=== PATIENT | male | born 1985 | race Caucasian/White ===

== ENCOUNTER → 2017-06-10 | Outpatient (CLI) | payer OTHER | END | disposition home or self-care (01) | LOC: C.LAB 21:07 | DX: Z02.83 Encounter for blood-alcohol and blood-drug test (principal) ==

== ENCOUNTER 2017-06-18 08:15 | Emergency (ER) | payer OTHER ==
[~2017-06-18] VITALS: Ht 180.3 cm; Wt 88.0 kg
[2017-06-18 08:16] VITALS: TEMP 36.7; Ht 180.3 cm; Wt 88.0 kg
--- NOTE | 2017-06-18 08:37 | EMERGENCY ROOM VISIT NOTE ---
ED Visit Note First contact with patient: 08:25 CHIEF COMPLAINT: Left third finger laceration 1 hour ago HISTORY OF PRESENT ILLNESS: Patient is a aparv-wehy-mbimhdwa 31-year-old white male who presents emergency department for evaluation of a laceration to the left third finger that he sustained at work roughly 1 hour ago. He got the left third finger pinched in an iron cell door, causing a laceration to the palmar aspect of the finger described below. He was seen by medical staff at the present who cleaned and wrapped the wound and referred him here for sutures. He notes mild bleeding, and notes a mild, throbbing pain. He is unsure of his last tetanus. Denies weakness or numbness of the finger. REVIEW OF SYSTEMS: Review of systems as per HPI. All other systems reviewed were negative. At least 6 systems reviewed. PMH: Electronic medical records are reviewed and summarized as above/below. See Problem List. SOCIAL HISTORY: Patient lives at home with his family. Non-smoker. 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 PHYSICAL EXAM: Vital Signs: Reviewed Nurse's notes. There is a 1.5 cm long laceration on the palmar aspect of the left third finger over the DIP crease. The edges gape apart with traction. There is no foreign material in the wound and it looks clean. There is no bleeding. No deep structures such as tendons or nerves are seen in the base of the wound. Extension and flexion of the finger is full and strong. EMERGENCY DEPARTMENT COURSE: X-rays of the left third finger were obtained and negative for acute fracture or bony injury. Tetanus was updated. Using sterile technique, saline and Betadine cleansing, and 1% lidocaine anesthesia, the laceration was repaired with 4,5-0 nylon sutures. Bacitracin and a light dressing were applied. Patient tolerated the procedure well. He was cleared to return to work without restrictions today. Differential diagnoses included laceration, fracture, dislocation, tendinous injury, among others. Medication reconciliation: I attest that I have personally reviewed the patient' s current medication list. Blood pressure screening: Patient was found to have a slightly elevated blood pressure due to circumstances. I do not believe that the patient requires hypertension monitoring. LEFT THIRD FINGER 3 VIEWS CLINICAL HISTORY: Laceration. FINDINGS: 3 views of the left third finger are obtained. No prior studies are available for comparison at the time of dictation. The skeletal structures are well mineralized. No fracture is seen. The third metacarpophalangeal and interphalangeal joints appear maintained. No radiodense foreign body is identified. IMPRESSION: There is no radiographic evidence of left third finger fracture. Problem List Medical Problems: (1) Hypertension Status: Chronic Current/Historical Medications No Active Prescriptions or Reported Meds Allergies Coded Allergies: No Known Allergies (Unverified , 06/18/17) Vital Signs Date Time Temp Pulse Resp B/P (MAP) Pulse Ox O2 Delivery O2 Flow Rate FiO2 06/18/17 08:16 36.7 70 18 164/99 98 Room Air Medications Administered Medications (Trade) Dose Ordered Sig/Zoë Route Start Time Stop Time Status Last Admin Dose Admin Diphtheria/ Pertussis/Tetanus Vacc (Adacel Inj) 0.5 ml ONCE ONCE IM. 06/18/17 08:45 06/18/17 08:46 DC 06/18/17 10:10 0.5 ML Departure Information Impression Primary Impression: Finger laceration Additional Impression: Work related injury Prescriptions No Active Prescriptions or Reported Meds Referrals No Doctor, Assigned (PCP) Patient Instructions Pending Sale To [facility] Additional Instructions Keep wound clean and dry. Do not allow any crusting or dried blood to accumulate on sutures. Clean gently with mild soap and water. Use an antibiotic ointment for 3-4 days, then let wound dry. Suture removal in 12-14 days. Return sooner for any signs of infection (increasing redness, swelling, drainage). Ice and elevate for swelling and pain. Ibuprofen 600 mg and Tylenol 1000 mg every 6 hrs for pain. Problem Qualifiers Primary Impression: Finger laceration Encounter type: initial encounter Finger: middle finger Damage to nail status: without damage Foreign body presence: without foreign body Laterality: left Qualified Codes: S61.213A - Laceration without foreign body of left middle finger without damage to nail, initial encounter
[2017-06-18] MEDS ORDERED: XYLOCAINE 1%/SOD BICARB 20 ML VIAL INFIL ONE (08:45)
[2017-06-18] MEDS ORDERED: DIPHTHERIA/TETANUS/PERTUSSIS 0.5 ML SYR/VIAL IM. ONE (08:45)
--- NOTE | 2017-06-18 09:10 | DIAGNOSTIC IMAGING REPORT ---
LEFT THIRD FINGER 3 VIEWS CLINICAL HISTORY: Laceration. FINDINGS: 3 views of the left third finger are obtained. No prior studies are available for comparison at the time of dictation. The skeletal structures are well mineralized. No fracture is seen. The third metacarpophalangeal and interphalangeal joints appear maintained. No radiodense foreign body is identified. IMPRESSION: There is no radiographic evidence of left third finger fracture. Electronically signed by: George Teague M.D. 06/18/2017 9:08 AM Dictated Date/Time: 06/18/2017 9:05 AM
[2017-06-18 10:19] VITALS: BP 132/77; PULSE 77; O2SAT 98
== END 2017-06-18 10:21 | disposition home or self-care (01) ==
LOC: C.EDB 08:16 → C.EDA 10:21
DX: S61.213A Laceration without foreign body of left middle finger without damage to nail, initial encounter (principal); W23.0XXA Caught, crushed, jammed, or pinched between moving objects, initial encounter; Y92.149 Unspecified place in prison as the place of occurrence of the external cause; Y99.0 Civilian activity done for income or pay; Z23 Encounter for immunization; I10 Essential (primary) hypertension

== ENCOUNTER 2023-10-21 21:45 | Inpatient (IN) ==
--- OUTSIDE RECORDS SUMMARY | 2023-10-21 21:51 | External Medical Summary ---
Author Name Unknown Address Unknown Organization K01:[facility] [place] [address] [place] [address] Laboratory Report Ordering Provider Test Date Status SERENA CURTIS 06/12/2023 09:21:28 Final Observation Date Value Abnormality Reference (Units ) Status BUN 06/12/2023 09:21:28 17 6-20 (mg/dL) Final Creatinine 06/12/2023 09:21:28 1.0 0.6-1.2 (mg/dL) Final Glomerular filtration rate/1.73 sq M.predicted [Volume Rate/Area] in Serum, Plasma or Blood by Creatinine-based formula (CKD-EPI) 06/12/2023 09:21:28 >90 >=60 (mL/min) Final eGFR is calculated based on the CKD-EPI 2020 equation SODIUM 06/12/2023 09:21:28 137 135-146 (m mol/L) Final Potassium 06/12/2023 09:21:28 4.7 3.5-5.1 (m mol/L) Final Cl 06/12/2023 09:21:28 99 98-107 (mm ol/L) Final CO2 06/12/2023 09:21:28 26 22-32 (mmo l/L) Final Anion gap 06/12/2023 09:21:28 12 7-15 (mmol /L) Final Glucose 06/12/2023 09:21:28 131 Above high normal 70 -120 (mg/dL) Final Albumin 06/12/2023 09:21:28 4.6 3.8-5.0 (g /dL) Final AST (Aspartate aminotransferase) 06/12/2023 09:21:28 21 10-50 (U/L) Fin al Alk Phos 06/12/2023 09:21:28 103 35-130 (U/ L) Final Bilirubin, Total 06/12/2023 09:21:28 0.2 <=1 .2 (mg/dL) Final Calcium 06/12/2023 09:21:28 9.8 8.4-10.2 ( mg/dL) Final Protein 06/12/2023 09:21:28 7.1 6.0-8.3 (g /dL) Final ALT (Alanine aminotransferase) 06/12/2023 09:21:28 62 Above high normal 10-50 (U/L) Final Performing Location [facility] [place] - [address] [facility] [id number]
--- OUTSIDE RECORDS SUMMARY | 2023-10-21 21:51 | External Medical Summary | Summary of Care ---
Author Name Unknown Organization [facility] Address [address] [place] [address] Phone [phone] Care Team Providers Care Dormitory Supervisor Name Role Phone Natalie Terry MD Primary Care Provi sharon Reason for Visit * Reason Onset Date Comments Health Maintenance 10/02/2023 Encounter Details Date Type Department Care Team ([facility] st Contact Info) Description 10/02/2023 Telephone [facility] [address] [place] [address] Que Bowers, [address] [place] [address] Health Maintenance Allergies No known active allergiesdocumented as of this encounter (statuses as of 10/18/2023) Medications Medication Sig Dispensed Refills Start Date End Date Status Omeprazole 20 MG Oral Capsule Delayed Release (PriLOSEC)Indication s:Gastroesophageal reflux disease without esophagitis TAKE 1 CAPSULE BY MOUTH EVERY DAY 1 HOUR BEFORE THE FIRST MEAL OF THE DAY 90 Capsule 03/29/2023 Active Citalopram Hydrobromide 20 MG Oral Tablet (CeleXA) TAKE 1 TABLET BY MOUTH EVERY DAY IN THE MORNING 90 Tablet 04/20/2023 Active Losartan Potassium 50 MG Oral Tablet (Cozaar)Indications: Essential hypertension with goal blood pressure less than 140/90 TAKE 1 TABLET BY MOUTH EVERY DAY IN THE MORNING 90 Tablet 09/06/2023 Active Naltrexone 380 MG Intramuscular Suspension Reconstituted (Vivitrol) Inject 380 mg into a large muscle Every 28 days for 12 doses. 1 Each 11 09/12/2022 10/10/2023 documented as of this encounter (statuses as of 10/18/2023) Active Problems Problem Noted Date Diagnosed Date Alcohol dependence, binge pattern 11/22/2022 Prediabetes 10/03/2021 Overview: Per Prediabetes protocol Mixed hyperlipidemia 09/12/2021 Impaired fasting glucose 09/12/2021 Essential hypertension with goal blood pressure less than 140/90 02/04/2020 Gastroesophageal reflux disease without esophagi tis 02/04/2020 documented as of this encounter (statuses as of 10/18/2023) Immunizations Name Administration Dates Next Due DTP Vaccine 01/29/1997, 9,12/23/1986, 985,1984,1984 Hepatitis B, 0-19 yrs 09/21/2000,01/29/1997 MMR - Measles/Mumps/Rubella Vaccine 01/29/1997,0 05/14/1986 OPV - Polio Virus Vaccine (Oral) 989,12/23/1986,1984, 985 Season Influenza, Quad, PF, Adjuvanted, 65+ Yrs, IM (FLUAD) 01/21/2020 TB Halima Test 05/17/2001,01/29/1997,08/06/1989 documented as of this encounter Social History Tobacco Use Types Packs/Day Years Used Date Smoking Tobacco: Never Smokeless Tobacco: Current Snuff Alcohol Use Standard Drinks/Week Comments Not Currently 0 (1 standard drink = 0.6 oz pur e alcohol) Denies 09/11/23 PHQ-2 Answer Date Recorded PHQ Adult Total Score 16 08/30/2022 Hunger Vital Sign Answer Date Recorded Within the past 12 months, y ou worried that your food would run out before you got the money to buy more. Never true 08/30/19 23 Within the past 12 months, t he food you bought just didn't last and you didn't have money to get more. Never true 08/29/2022 Utilities Answer Date Recorded Do you have trouble paying y our heating, water, or electric bill? (Adult - for ages 18 years and over) Not on file 09/11/2023 Is your family able to pay t he heat, water, or electric bill? (Household - for ages 0-17 years) Not on file 09/11/2023 Does your family have access to good internet? (Household - for ages 0-17 years) Not on file 09/11/2023 Social Connections Answer Date Recorded How often do you feel lonely or isolated from those around you? (Adult - for ages 18 years and over) Not on file 09/11/2023 Sex and Gender Information Value Date Recorded Sex Assigned at Male 03/10/2020 9:57 AM EST Gender Identity Male 03/10/2020 9:57 AM EST Sexual Orientation Straight 03/10/2020 9: 57 AM EST Job Start Date Occupation Industry Not on file Not on file Not on file documented as of this encounter Miscellaneous Notes * Addendum Note - Liza Walters LPN - 10/18/2023 2:23 PM EDTAddended by: LIZA WALTERS on: 10/18/2023 02:23 PM Modules accepted: Orders * Telephone Encounter - Liza Walters LPN - 10/18/2023 2:22 PM EDT Spoke to pt. Routine labs and routine appt scheduled. * Telephone Encounter - Liza Walters LPN - 10/02/2023 8:45 AM EDT Care Gaps Comprehensive Care Outreach Last Office/Telemedicine Visit: 01/04/2023 (in office), Visit date not found (telemedicine) Next Office Visit: Visit date not found Hemoglobin AIC Results: Lab Results Component Value Date/Time HEMOGLOBIN A1C - [facility] 5.8 (H) 09/29/2022 08:16 AM HEMOGLOBIN A1C - [facility] 5.8 (H) 09/05/2021 07:30 AM HEMOGLOBIN A1C - [facility] 5.5 02/04/2020 03:23 PM BP Readings from Last 1 Encounters: 09/11/23 144/95 Reviewed Health Maintenance below: HbA1c 09/30/2023 Care Gap Outreach Action Taken: Left message and MyChart message sent documented in this encounter Plan of Treatment Upcoming Encounters Date Type Department Care Team ([facility] st Contact Info) Description 11/12/2023 7:30 AM EDT Laboratory Laboratory Patient Service [address] [phone] [facility] [address] [address] 11/19/2023 8:00 AM EDT Office Visit [address] [phone] Natalie Terry MD [address] [place] [phone] Scheduled Orders Name Type Priority Associated Diagnoses Orde r Schedule LIPID PANEL WITH DIRECT LDL IF TG IS HIGH Lab Routine Mixed hyperlipidemia Expected: 10/18/2023, Expires: 10/17/2024 COMPREHENSIVE METABOLIC PANEL Lab Routine Essential hypertension with goal blood pressure less than 140/90 Expected: 10/18/2023, Expires: 10/17/2024 HEMOGLOBIN A1C Lab Routine Prediabetes Expected: 10/18/2023, Expires: 10/17/2024 Health Maintenance Due Date Last Done Comments Pneumococcal Vaccine: Pediatrics (0 to 5 Years) and At-Risk Patients (6 to 64 Years) (1 of 2 - PCV) 1990 DTaP,Tdap,and Td Vaccines (7 - Tdap) 01/29/2007 01/29/1997, 03/01/1989, 12/23/1986, Additional history exists COVID-19 Vaccine (1 - 2022- season) 2022 Depression Monitoring 08/31/2023 08/30/2022 HbA1c 09/30/2023 09/29/2022, 08/24, 02/04/2020 Influenza Vaccine (FLU shot) (#1) 2023 01/21/2020, 01/06/2012, 12/24/2010, Additional history exists GFR 06/11/2024 06/12/2023, 0709/2022, 09/05/2021, Additional history exists Albumin/Creatinine Ratio 09/05/2024 09/05/2021 MENINGOCOCCAL (MENACTRA/MENVEO) Aged Out 09/14/2004 No longer eligible based on patient's age to complete this topic Hepatitis B Vaccine Completed 05/26/2005, 10/15/2004, 09/14/2004, Additional history exists HPV (Gardasil) Vaccine Aged Out No lo nger eligible based on patient's age to complete this topic documented as of this encounter Medical Devices Not on filedocumented as of this encounter Visit Diagnoses Diagnosis Essential hypertension with goal blood pressure less than 140/90- Primary Mixed hyperlipidemia Prediabetes Other abnormal glucose Screening for lipid disorders documented in this encounter Care Teams Dormitory Supervisor Relationship Specialty Start Date End Date Natalie Terry MD [address] [place] [phone] PCP - General Family Medicine 10/18/23 documented as of this encounter
--- OUTSIDE RECORDS SUMMARY | 2023-10-21 21:51 | External Medical Summary | Summary of Care ---
Author Name Unknown Organization [facility] Address [address] [place] [address] Phone [phone] Care Team Providers Care Community Sports Coordinator Name Role Phone Que Aguirre DO Primary Care Provid er Reason for Visit * Reason Comments eRx-Medication Refill Encounter Details Date Type Department Care Team ([facility] st Contact Info) Description 09/05/2023 Refill [facility] [address] [place] [phone] Que Aguirre DO [address] [place] [address] Essential hypertension with goal blood pressure less than 140/90 Allergies No known active allergiesdocumented as of this encounter (statuses as of 09/06/2023) Medications Medication Sig Dispensed Refills Start Date End Date Status Omeprazole 20 MG Oral Capsule Delayed Release (PriLOSEC)Indicati ons:Gastroesophage al reflux disease without esophagitis TAKE 1 CAPSULE BY MOUTH EVERY DAY 1 HOUR BEFORE THE FIRST MEAL OF THE DAY 90 Capsule 03/29/2023 Active Citalopram Hydrobromide 20 MG Oral Tablet (CeleXA) TAKE 1 TABLET BY MOUTH EVERY DAY IN THE MORNING 90 Tablet 04/20/2023 Active Losartan Potassium 50 MG Oral Tablet (Cozaar)Indication s:Essential hypertension with goal blood pressure less than 140/90 TAKE 1 TABLET BY MOUTH EVERY DAY IN THE MORNING 90 Tablet 1 09/06/2023 Active Losartan Potassium 50 MG Oral Tablet (Cozaar)Indication s:Essential hypertension with goal blood pressure less than 140/90 TAKE 1 TABLET BY MOUTH EVERY DAY IN THE MORNING 90 Tablet 2 11/24/2022 4 Discontinued documented as of this encounter (statuses as of 09/06/2023) Active Problems Problem Noted Date Diagnosed Date Alcohol dependence, binge pattern 11/22/2022 Prediabetes 10/03/2021 Overview: Per Prediabetes protocol Mixed hyperlipidemia 09/12/2021 Impaired fasting glucose 09/12/2021 Essential hypertension with goal blood pressure less than 140/90 02/04/2020 Gastroesophageal reflux disease without esophagi tis 02/04/2020 documented as of this encounter (statuses as of 09/06/2023) Immunizations Name Administration Dates Next Due Season Influenza, Quad, PF, Adjuvanted, 65+ Yrs, IM (FLUAD) 01/21/2020 documented as of this encounter Social History Tobacco Use Types Packs/Day Years Used Date Smoking Tobacco: Never Smokeless Tobacco: Current Snuff Alcohol Use Standard Drinks/Week Comments Not Currently 0 (1 standard drink = 0.6 oz pur e alcohol) Denies 07/13/23 PHQ-2 Answer Date Recorded PHQ Adult Total [...] money to get more. Never true 08/29/2022 Sex and Gender Information Value Date Recorded Sex Assigned at Male 03/10/2020 9:57 AM EST Gender Identity Male 03/10/2020 9:57 AM EST Sexual Orientation Straight 03/10/2020 9: 57 AM EST Job Start Date Occupation Industry Not on file Not on file Not on file documented as of this encounter Miscellaneous Notes * Telephone Encounter - Mary Paniagua [facility] [place] [facility] - 09/06/2023 7:27 AM EDTSigned Prescriptions: Disp Refills Losartan Potassium 50 MG Oral Tablet (Coza*90 Tab*1 Sig: TAKE 1 TABLET BY MOUTH EVERY DAY IN THE MORNINGAuthorizing Provider: QUE AGUIRRE User: MARY PANIAGUA documented in this encounter Plan of Treatment Health Maintenance Due Date Last Done Comments Pneumococcal Vaccine: Pediatrics (0 to 5 Years) and At-Risk Patients (6 to 64 Years) (1 of 2 - PCV) 1990 DTaP,Tdap,and Td Vaccines (7 - Tdap) 01/29/2007 01/29/1997, 03/01/1989, 12/23/1986, Additional history exists COVID-19 Vaccine ( season) 2022 Depression Monitoring 08/31/2023 08/30/2022 HbA1c 09/30/2023 09/29/2022, 08/24, 02/04/2020 Influenza Vaccine (FLU shot) (Season Ended) 2023 01/21/2020, 01/06/2012, 12/24/2010, Additional history exists GFR 06/11/2024 06/12/2023, 0709/2022, 09/05/2021, Additional history exists Albumin/Creatinine Ratio 09/05/2024 09/05/2021 MENINGOCOCCAL (MENACTRA/MENVEO) Aged Out 09/14/2004 No longer eligible based on patient's age to complete this topic Hepatitis B Completed 05/26/2005, 09/24, 09/14/2004, Additional history exists GARDASIL-HPV IMMUNIZATION SERIES Aged Out No longer eligible based on patient's age to complete this topic documented as of this encounter Medical Devices Not on filedocumented as of this encounter Visit Diagnoses Diagnosis Essential hypertension with goal blood pressure less than 140/90 documented in this encounter Care Teams Community Sports Coordinator Relationship Specialty Start Date End Date Que Aguirre DO [address] [place] [id number] PCP - General Internal Medicine 07/30/20 documented as of this encounter
--- OUTSIDE RECORDS SUMMARY | 2023-10-21 21:51 | External Medical Summary ---
Author Name Unknown Address Unknown Organization : Laboratory Report Ordering Provider Test Date Status SERENA CURTIS 07/13/2023 10:03:42 Final Observation Date Value Abnormality Reference (Units ) Status Ethyl glucuronide [Mass/volume] in Urine 07/13/2023 10:03:42 NEGATIVE <500 (ng/mL) Final Ethyl sulfate [Mass/volume] in Urine 07/13/2023 10:03:42 NEGATIVE <100 (ng/mL) Final This drug testing is for med ical treatment only.
Analysis was performed as non-forensic testing and
these results should be used only by healthcare
providers to render diagnosis or treatment, or to
monitor progress of medical conditions.
For assistance with interpreting these drug results,
please contact a [facility] Toxicology
Specialist: [phone] ( ), M-F,
8am-6pm EST.
For additional information, please refer to
http://education.[facility]/faq/GYT349
(This link is being provided for informational/
educational purposes only.)
This test was developed and its analytical performance
characteristics have been determined by [facility]
[place], [place]. It has
not been cleared or approved by the U.S. Food and Drug
Administration. This assay has been validated pursuant
to the CLIA regulations and is used for clinical
purposes.

Test Performed at:
[email or web address]
[id number] [facility] [place] [address]
Chang Duncan M.D., Ph.D.,Director of Laboratories Performing Location
--- OUTSIDE RECORDS SUMMARY | 2023-10-21 21:51 | External Medical Summary | Summary of Care ---
Author Name Unknown Organization [facility] Address [address] [place] [address] Phone [phone] Care Team Providers Care Technical Services Manager Name Role Phone Que Bowers DO Primary Care Provid er Reason for Visit * Reason Onset Date Comments Health Maintenance 10/02/2023 Encounter Details Date Type Department Care Team ([facility] Contact Info) Description 10/02/[address] [facility] [address] [place] [phone] Que Bowers DO [address] [place] [address] Health Maintenance Allergies No known active allergiesdocumented as of this encounter (statuses as of 10/02/2023) Medications Medication Sig Dispensed Refills Start Date End Date Status Naltrexone 380 MG Intramuscular Suspension Reconstituted (Vivitrol) Inject 380 mg into a large muscle Every 28 days for 12 doses. 1 Each 09/12/2022 10/10/2023 Active Omeprazole 20 MG Oral Capsule Delayed Release (PriLOSEC)Indications :Gastroesophageal reflux disease without esophagitis TAKE 1 CAPSULE BY MOUTH EVERY DAY 1 HOUR BEFORE THE FIRST MEAL OF THE DAY 90 Capsule 1 03/29/2023 Active Citalopram Hydrobromide 20 MG Oral Tablet (CeleXA) TAKE 1 TABLET BY MOUTH EVERY DAY IN THE MORNING 90 Tablet 1 04/20/2023 Active Losartan Potassium 50 MG Oral Tablet (Cozaar)Indications:E ssential hypertension with goal blood pressure less than 140/90 TAKE 1 TABLET BY MOUTH EVERY DAY IN THE MORNING 90 Tablet 1 09/06/2023 Active documented as of this encounter (statuses as of 10/02/2023) Active Problems Problem Noted Date Diagnosed Date Alcohol dependence, binge pattern 11/22/2022 Prediabetes 10/03/2021 Overview: Per Prediabetes protocol Mixed hyperlipidemia 09/12/2021 Impaired fasting glucose 09/12/2021 Essential hypertension with goal blood pressure less than 140/90 02/04/2020 Gastroesophageal reflux disease without esophagi tis 02/04/2020 documented as of this encounter (statuses as of 10/02/2023) Immunizations Name Administration Dates Next Due Season [...] encounter Miscellaneous Notes * Telephone Encounter - Liza Fletcher LPN - 10/02/2023 8:45 AM EDT Care [...] 12/23/1986, Additional history exists COVID-19 Vaccine ( - season) 2022 Depression Monitoring 08/31/2023 08/30/2022 HbA1c 09/30/2023 09/29/2022, 08/24, 02/04/2020 Influenza Vaccine (FLU shot) (#1) 2023 01/21/2020, 01/06/2012, 12/24/2010, Additional history exists GFR 06/11/2024 06/12/2023, 07/0 09/2022, 09/05/2021, Additional history exists Albumin/Creatinine Ratio 09/05/2024 [...] Not on filedocumented as of this encounter Care Teams Technical Services Manager Relationship Specialty Start Date End Date Que Bowers DO [address] [place] [id number] PCP - General Internal Medicine 07/30/20 documented as of this encounter
--- OUTSIDE RECORDS SUMMARY | 2023-10-21 21:51 | External Medical Summary ---
Author Name Unknown Address Unknown Organization K01:[facility]AT[facility] [place] - [address] [facility] [id number] Laboratory Report Ordering Provider Test Date Status RAJIV DAY 05/17/2023 09:10:54 Final Cutoff Concentrations:
Drug Level
Amphetamines 500 ng/mL
Benzodiazepines 100 ng/mL
Cannabinoids 50 ng/mL
Cocaine Metabolite 150 ng/mL
Fentanyl 1 ng/mL
Hydrocodone / Hydromorphone 300 ng/mL
Methadone Metabolite 100 ng/mL
Morphine / Codeine 300 ng/mL
Oxycodone / Oxymorphone 100 ng/mL

Screening results are presumptive and can only be used for medical purposes. Confirmatory testing is available upon request. Observation Date Value Abnormality Reference (Units ) Status Amphetamines, Urine screen 05/17/2023 09:10:54 Negative Negative Final Benzodiazepines, Urine screen 05/17/2023 09:10:54 Negative Negative Final Cannabinoids, Urine screen 05/17/2023 09:10:54 Negative Negative Final Cocaine Metabolite, Urine screen 05/17/2023 09:10:54 Negative Negative Final fentaNYL [Presence] in Urine by Screen method 05/17/2023 09:10:54 Negative Negative Final HYDROcodone [Presence] in Urine by Screen method 05/17/2023 09:10:54 Negative Negative Final 4-Fawbroultf-3,5-Dimeth yl-3,3-Diphenylpyrrolid ine (EDDP) [Presence] in Urine 05/17/2023 09:10:54 Negative Negative Final Opiates, Urine screen 05/17/2023 09:10:54 Negative Negative Final oxyCODONE [Presence] in Urine by Screen method 05/17/2023 09:10:54 Negative Negative Final Performing Location LABORATORY C - [address] [facility] [id number]
--- OUTSIDE RECORDS SUMMARY | 2023-10-21 21:51 | External Medical Summary ---
Author Name Unknown Address Unknown Organization : Laboratory Report Ordering Provider Test Date Status SERENA CURTIS 09/11/2023 10:04:00 Final Observation Date Value Abnormality Reference (Units ) Status Ethyl glucuronide [Mass/volume] in Urine 09/11/2023 10:04:00 NEGATIVE <500 (ng/mL) Final Ethyl sulfate [Mass/volume] in Urine 09/11/2023 10:04:00 NEGATIVE <100 (ng/mL) Final This drug testing is for med ical treatment only.
Analysis was performed as non-forensic testing and
these results should be used only by healthcare
providers to render diagnosis or treatment, or to
monitor progress of medical conditions.
For assistance with interpreting these drug results,
please contact a [facility]
Specialist: [phone] ( [phone] M-F,
8am-6pm EST.
For additional information, please refer to
[email or web address]
(This link is being provided for informational/
educational purposes only.)
This test was developed and its analytical performance
characteristics have been determined by [employer]
[place], [place]. It has
not been cleared or approved by the U.S. Food and Drug
Administration. This assay has been validated pursuant
to the CLIA regulations and is used for clinical
purposes.

Test Performed at:
[facility]
[id number] [facility]
[place] [address]
Chang Duncan M.D., Ph.D.,Director of Laboratories Performing Location
[2023-10-21] MEDS ORDERED: STAT IV Infusion **Titration per Protocol STA (22:03)
[2023-10-21] MEDS ORDERED: PHARMACY GLYCEMIC MGMT CONSULT PRN (22:03)
[2023-10-21 22:16] LABS: Oxygen Saturation VBG 70.6 %; PCO2 VBG 25 mmHg (38-50); PO2 VBG 42 mmHg; pH VBG < 7.00 (7.36-7.41)
[2023-10-21] MEDS ORDERED: Patient's HEIGHT &/or WEIGHT Needed STA (22:17)
[2023-10-21] MEDS: SODIUM CHLORIDE 0.9% 1,000 ML IV SCH ×2 (22:22→22:23)
[2023-10-21 22:27] LABS: Hematocrit (blood only) 46.4 % (42.0-52.0); Hemoglobin 14.8 g/dl (14.0-18.0); Mean Corpuscular Hemoglobin 29.4 pg (25.0-34.0); Mean Corpuscular Hgb Conc 31.9 g/dL (32.0-36.0); Mean Corpuscular Volume 92.2 fL (80.0-100.0); Mean Platelet Volume 11.9 fL (9.4-12.4); Platelet Count 413 K/uL (130-400); RDW Coefficient of Variation 13.2 % (11.5-14.5); RDW Standard Deviation 44.6 fL (36.4-46.3); Red Blood Count 5.03 M/uL (4.70-6.10); White Blood Count 12.69 K/ul (4.8-10.8)
[2023-10-21 22:41] LABS: Calcium 8.9 mg/dl (8.6-10.3); Potassium 5.4 mmol/L (3.5-5.1)
[2023-10-21 22:42] LABS: Albumin Globulin Ratio 1.5 (0.9-2); Albumin Level 4.8 gm/dl (3.4-5.0); BUN Creatinine Ratio 23.7 (10-20); Bilirubin,Total 0.4 mg/dl (0.2-1.0); Creatinine Clr Calc Pharmacy 54.4 ml/min; Est GFR (African American) 49.1 ml/min; Est GFR (Non-African American) 42.4 ml/min; Globulin 3.2 gm/dl (2.5-4.0); Magnesium 2.4 mg/dl (1.7-2.4)
[2023-10-21] MEDS ORDERED: GLUCOSE 40% GEL 15 GM TUBE PO PRN (22:45)
[2023-10-21] MEDS ORDERED: DEXTROSE 50% 50 ML SYRINGE IV PRN (22:45)
[2023-10-21] MEDS ORDERED: CARBOHYDRATES FOR HYPOGLYCEMIA PO PRN (22:45)
[2023-10-21] MEDS ORDERED: GLUCOSE 10 TAB/TUBE PO PRN (22:45)
[2023-10-21] MEDS ORDERED: GLUCAGON FOR INJ 1 MG VIAL IM PRN (22:45)
--- NOTE | 2023-10-21 22:47 | Emergency Department Note ---
History of Present Illness General Chief complaint: Shortness of Breath/Dyspnea Stated complaint: SHORTNESS OF BREATH, BLACK VOMIT, NOT EATING Time Seen by Provider: 10/21/23 21:56 History of Present Illness Maximum Pain Intensity: 8 This is a 38-year-old male presenting to the emergency department for evaluation of abdominal pain, vomiting, and shortness of breath. The patient feels like he cannot catch his breath. He is very thirsty and has been drinking large quantities of fluids this week. Patient symptoms began mildly about a week ago but significantly worsened today. Patient did have an episode of emesis this morning, and felt better after this happened. He does not have history of chronic medical disease. He rates his overall discomfort an 8/10. Home Medications Medication Instructions Recorded Confirmed Type citalopram 20 mg tablet 20 mg PO ONCE PM 10/21/23 10/21/23 History losartan 50 mg tablet 50 mg PO DIRECTED 10/21/23 10/21/23 History omeprazole 20 mg capsule,delayed 20 mg PO DIRECTED 10/21/23 10/21/23 History release Allergies Allergy/AdvReac Type Severity Reaction Status Date / Time No Known Allergies Allergy Unverified 06/18/17 08:38 Past Med/Surg History Problem List (Updated 10/22/23 @ 01:33 by Louie Fletcher PA-C) Abdominal pain (Acute) Nausea and vomiting (Acute) Acidosis due to secondary diabetes (Acute) DKA (diabetic ketoacidosis) (Acute) Diabetes mellitus, new onset (Acute) Surgical History (Updated 10/21/23 @ 22:50 by Louie Fletcher PA-C) No significant past surgical history Social History Smoking Status: Never smoker Review of Systems A total of 10 systems reviewed and were otherwise negative Physical Exam Vital Signs Vital Signs - 24 hr 10/21/23 21:48 10/21/23 22:21 10/21/23 22:24 Temperature 35.6 C L Temperature Source Temporal Artery Scan Pulse Rate 135 H 120 H Pulse Rate [Apical] Pulse Rate from SpO2 Sensor Pulse Rhythm Pulse Rhythm [Apical] Pulse Strength [Apical] Respiratory Rate 22 35 H Respiratory Effort / Characteristics Non-Labored Spontaneous Respiratory Depth Normal Blood Pressure 122/89 127/89 Blood Pressure [Left Arm] Blood Pressure Mean 100 101 Blood Pressure Mean [Left Arm] Blood Pressure Position Sitting Pulse Oximetry 100 99 98 Oxygen Delivery Method Room Air Room Air Room Air Sepsis Recent Fever Within 48 Hours No Sepsis New/Unexplained Change in Mental Status N/A Sepsis Action Taken by Nursing Physician Notified 10/21/23 22:24 10/21/23 22:24 10/21/23 22:33 Temperature Temperature Source Pulse Rate 116 H 116 H Pulse Rate [Apical] 117 H Pulse Rate from SpO2 Sensor Pulse Rhythm Regular Pulse Rhythm [Apical] Regular Pulse Strength [Apical] Normal Respiratory Rate 33 H 34 H 36 H Respiratory Effort / Characteristics Non-Labored Spontaneous Respiratory Depth Deep Blood Pressure 146/89 H Blood Pressure [Left Arm] 127/89 Blood Pressure Mean 108 Blood Pressure Mean [Left Arm] 101 Blood Pressure Position Pulse Oximetry 99 Oxygen Delivery Method Room Air Sepsis Recent Fever Within 48 Hours Sepsis New/Unexplained Change in Mental Status Sepsis Action Taken by Nursing 10/21/23 22:38 10/21/23 22:48 10/21/23 23:03 Temperature Temperature Source Pulse Rate 113 H 109 H Pulse Rate [Apical] Pulse Rate from SpO2 Sensor 109 H Pulse Rhythm Pulse Rhythm [Apical] Pulse Strength [Apical] Respiratory Rate 30 H 35 H Respiratory Effort / Characteristics Respiratory Depth Blood Pressure 128/84 143/85 H Blood Pressure [Left Arm] Blood Pressure Mean 101 104 Blood Pressure Mean [Left Arm] Blood Pressure Position Pulse Oximetry 100 100 Oxygen Delivery Method Room Air Room Air Sepsis Recent Fever Within 48 Hours Sepsis New/Unexplained Change in Mental Status Sepsis Action Taken by Nursing 10/21/23 23:15 10/21/23 23:36 10/21/23 23:51 Temperature Temperature Source Pulse Rate 108 H 106 H 103 H Pulse Rate [Apical] Pulse Rate from SpO2 Sensor 108 H 106 H 104 H Pulse Rhythm Pulse Rhythm [Apical] Pulse Strength [Apical] Respiratory Rate 31 H 27 H 26 H Respiratory Effort / Characteristics Respiratory Depth Blood Pressure Blood Pressure [Left Arm] Blood Pressure Mean Blood Pressure Mean [Left Arm] Blood Pressure Position Pulse Oximetry 100 100 100 Oxygen Delivery Method Room Air Room Air Room Air Sepsis Recent Fever Within 48 Hours Sepsis New/Unexplained Change in Mental Status Sepsis Action Taken by Nursing VITALS: Vitals are noted on the nurse's note and reviewed by myself. Vital signs stable. GENERAL: White male who appears ill on arrival. He is tachypneic and speaking in short sentences HEAD: Normocephalic atraumatic. MOUTH: Mucous membranes dry. Lips are chapped. NECK: Supple without nuchal rigidity. No lymphadenopathy. No thyromegaly. Cervical spine is nontender. HEART: Tachycardic rate LUNGS: Clear to auscultation bilaterally without wheezes, rales or rhonchi. No retractions or accessory muscle use. ABDOMEN: Positive normal bowel sounds x 4. Soft, nontender, without masses or organomegaly. No guarding or rebound tenderness. MUSCULOSKELETAL: No muscle atrophy, erythema, or edema noted. Full range of motion in all extremities. NEURO: Patient was alert and oriented to person place and time. CN II through XII grossly intact. GCS 15 Course Administered Medications Insulin Human Regular 250 (units/ Sodium Chloride) 250 mls @ 10.8 mls/hr IV .Q23H9M MOOSE; Protocol Stop: 11/20/23 22:14 Last Titration: 10/22/23 00:43 Dose: 10.8 units/hr, 10.8 mls/hr Documented By: Co-signed By: GARY Admin: 10/21/23 22:53 Dose: 9 units/hr, 9 mls/hr Documented By: ALINE Co-signed By: [facility] Discontinued Medications Sodium Chloride (Nss) 1,000 mls @ 999 mls/hr IV .Q1H1M MOOSE Stop: 10/21/23 23:15 Last Infusion: 10/21/23 23:26 Dose: Infused Documented By: Admin: 10/21/23 22:22 Dose: 999 mls/hr Documented By: ALINE Sodium Chloride (Nss) 1,000 mls @ 999 mls/hr IV .Q1H1M MOOSE Stop: 10/22/23 00:04 Last Infusion: 10/22/23 01:14 Dose: Infused Documented By: Admin: 10/21/23 22:55 Dose: 999 mls/hr Documented By: Infusion: 10/21/23 22:55 Dose: Infused Documented By: Admin: 10/21/23 22:23 Dose: 999 mls/hr Documented By: ALINE Sodium Bicarbonate 100 meq/ (Sterile Water) 1,100 mls @ 500 mls/hr IV .Q2H12M STA Stop: 10/22/23 00:33 Last Infusion: 10/22/23 01:13 Dose: Infused Documented By: Admin: 10/21/23 22:51 Dose: 500 mls/hr Documented By: ALINE Thiamine HCl 100 mg/ Syringe 10 mls @ 2 mls/min IV NOW STA Stop: 10/21/23 23:54 Last Admin: 10/22/23 00:58 Dose: Not Given Documented By: Pantoprazole Sodium 80 mg/ (Dextrose) 120 mls @ 480 mls/hr IV ONE STA Stop: 10/22/23 00:29 Last Infusion: 10/22/23 01:12 Dose: Infused Documented By: Admin: 10/22/23 00:53 Dose: 480 mls/hr Documented By: Insulin Human Regular (Novolin-R Bolus From Bag) 9 units IV ONE ONE Stop: 10/21/23 23:01 Last Admin: 10/21/23 22:53 Dose: 9 units Documented By: LETHA Co-signed By: Critical Care Time I have personally spent greater than 79 minutes of critical care time in the direct management of this patient. This includes bedside care, interpretation of diagnostic studies, and testing, discussion with consultants, patient, and family members, and other required patient management activities. This 79 minutes is in excess of all separately billable procedures. Medical Decision Making Differential Diagnosis Differential diagnosis: Etiologies such as dka, sepsis, UTI, pneumonia, bacteremia, metabolic process, electrolyte abnormalities, cardiac sources, intracerebral event, intra-abdominal process, toxicological process, neurologic process, as well as others were entertained. Laboratory Data 10/21/23 22:10 10/21/23 23:53 Lab Results 10/21/23 10/21/23 10/21/23 Range/Units 22:01 22:02 22:10 WBC 12.69 H (4.8-10.8) K/ul RBC 5.03 (4.70-6.10) M/uL Hgb 14.8 (14.0-18.0) g/dl Hct 46.4 (42.0-52.0) % MCV 92.2 (80.0-100.0) fL MCH 29.4 (25.0-34.0) pg MCHC 31.9 L (32.0-36.0) g/dL RDW Std Deviation 44.6 (36.4-46.3) fL RDW Coeff of Elvia 13.2 (11.5-14.5) % Plt Count 413 H (130-400) K/uL MPV 11.9 (9.4-12.4) fL Immature Gran % (Auto) 0.9 % Neut % (Auto) 90.9 % Lymph % (Auto) 5.6 % Price % (Auto) 2.1 % Eos % (Auto) 0.1 % Baso % (Auto) 0.4 % Neut # (Auto) 11.54 H (1.40-6.50) K/uL Lymph # (Auto) 0.71 L (1.20-3.40) K/uL Price # (Auto) 0.27 (0.11-0.59) K/uL Eos # (Auto) 0.01 (0.00-0.50) K/uL Baso # (Auto) 0.05 (0.00-0.20) K/uL Immature Gran # (Auto) 0.11 (0.01-0.20) K/uL PT 10.2 (9.0-12.0) Seconds INR 0.9 (0.9-1.1) APTT 30 (21-31) Seconds PTT Ratio 1.1 VBG pH < 7.00 L (7.36-7.41) VBG pCO2 25 L (38-50) mmHg VBG pO2 42 mmHg VBG HCO3 TNP VBG O2 Saturation 70.6 % VBG Base Excess TNP Sodium 125 L (136-145) mmol/L Potassium 5.4 H (3.5-5.1) mmol/L Chloride 88 L (98-107) mmol/L Carbon Dioxide 6 L* (21-32) mmol/L Anion Gap 31 H (3-11) BUN 46 H (6-23) mg/dl Creatinine 1.94 H (0.6-1.4) mg/dl Est Cr Clr Drug Dosing 54.4 ml/min Est GFR ( Amer) 49.1 ml/min Est GFR (Non-Af Amer) 42.4 ml/min BUN/Creatinine Ratio 23.7 H (10-20) Glucose 845 H* (70-99(Fasting)) mg/dl POC Glucose > 600 H* > 600 H* (70-99) mg/dl Estimat Average Glucose 263 mg/dl Hemoglobin A1c 10.8 H (4.5-5.6) % Osmolality 349 H (280-300) mOsm/kg Calcium 8.9 (8.6-10.3) mg/dl Magnesium 2.4 (1.7-2.4) mg/dl Total Bilirubin 0.4 (0.2-1.0) mg/dl AST 12 L (13-39) U/L ALT 31 (7-52) U/L Alkaline Phosphatase 137 H (34-104) U/L Troponin I High Sens 4.1 (0-20) pg/ml Total Protein 8.0 (6.0-8.3) gm/dl Albumin 4.8 (3.4-5.0) gm/dl Globulin 3.2 (2.5-4.0) gm/dl Albumin/Globulin Ratio 1.5 (0.9-2) Lipase 46 (11-82) U/L Procalcitonin 0.15 (0-0.5) ng/ml TSH 0.560 (0.300-4.500) uIu/ml Urine Color Urine Appearance (Clear) Urine pH (4.5-7.5) Ur Specific [place]rosse (1.000-1.030) Urine Protein (Negative) Urine Glucose (UA) (Negative) Urine Ketones (Negative) Urine Blood (Negative) Urine Nitrite (Negative) Urine Bilirubin (Negative) Urine Urobilinogen (Negative) Ur Leukocyte Esterase (Negative) Urine WBC (Auto) (0-5) /hpf Urine RBC (Auto) (0-2) /hpf U Hyaline Cast (Auto) (0-2) /lpf U Epithel Cells (Auto) (0-2) /hpf Urine Bacteria (Auto) (None Seen) Ethyl Alcohol mg/dL (<10.0) mg/dl 10/21/23 10/21/23 10/21/23 Range/Units 22:44 22:59 23:49 WBC (4.8-10.8) K/ul RBC (4.70-6.10) M/uL Hgb (14.0-18.0) g/dl Hct (42.0-52.0) % MCV (80.0-100.0) fL MCH (25.0-34.0) pg MCHC (32.0-36.0) g/dL RDW Std Deviation (36.4-46.3) fL RDW Coeff of Elvia (11.5-14.5) % Plt Count (130-400) K/uL MPV (9.4-12.4) fL Immature Gran % (Auto) % Neut % (Auto) % Lymph % (Auto) % Price % (Auto) % Eos % (Auto) % Baso % (Auto) % Neut # (Auto) (1.40-6.50) K/uL Lymph # (Auto) (1.20-3.40) K/uL Price # (Auto) (0.11-0.59) K/uL Eos # (Auto) (0.00-0.50) K/uL Baso # (Auto) (0.00-0.20) K/uL Immature Gran # (Auto) (0.01-0.20) K/uL PT (9.0-12.0) Seconds INR (0.9-1.1) APTT (21-31) Seconds PTT Ratio VBG pH (7.36-7.41) VBG pCO2 (38-50) mmHg VBG pO2 mmHg VBG HCO3 VBG O2 Saturation % VBG Base Excess Sodium (136-145) mmol/L Potassium (3.5-5.1) mmol/L Chloride (98-107) mmol/L Carbon Dioxide (21-32) mmol/L Anion Gap (3-11) BUN (6-23) mg/dl Creatinine (0.6-1.4) mg/dl Est Cr Clr Drug Dosing ml/min Est GFR ( Amer) ml/min Est GFR (Non-Af Amer) ml/min BUN/Creatinine Ratio (10-20) Glucose (70-99(Fasting)) mg/dl POC Glucose > 600 H* (70-99) mg/dl Estimat Average Glucose mg/dl Hemoglobin A1c (4.5-5.6) % Osmolality (280-300) mOsm/kg Calcium (8.6-10.3) mg/dl Magnesium (1.7-2.4) mg/dl Total Bilirubin (0.2-1.0) mg/dl AST (13-39) U/L ALT (7-52) U/L Alkaline Phosphatase (34-104) U/L Troponin I High Sens (0-20) pg/ml Total Protein (6.0-8.3) gm/dl Albumin (3.4-5.0) gm/dl Globulin (2.5-4.0) gm/dl Albumin/Globulin Ratio (0.9-2) Lipase (11-82) U/L Procalcitonin (0-0.5) ng/ml TSH (0.300-4.500) uIu/ml Urine Color Yellow Urine Appearance Clear (Clear) Urine pH 5.0 (4.5-7.5) Ur Specific [place]rosse 1.025 (1.000-1.030) Urine Protein Trace H (Negative) Urine Glucose (UA) 2+ H (Negative) Urine Ketones 4+ H (Negative) Urine Blood Negative (Negative) Urine Nitrite Negative (Negative) Urine Bilirubin Negative (Negative) Urine Urobilinogen Negative (Negative) Ur Leukocyte Esterase Negative (Negative) Urine WBC (Auto) 0-5 (0-5) /hpf Urine RBC (Auto) 0-2 (0-2) /hpf U Hyaline Cast (Auto) 0-2 (0-2) /lpf U Epithel Cells (Auto) 0-2 (0-2) /hpf Urine Bacteria (Auto) None Seen (None Seen) Ethyl Alcohol mg/dL < 10.0 (<10.0) mg/dl 10/21/23 Range/Units 23:53 WBC (4.8-10.8) K/ul RBC (4.70-6.10) M/uL Hgb (14.0-18.0) g/dl Hct (42.0-52.0) % MCV (80.0-100.0) fL MCH (25.0-34.0) pg MCHC (32.0-36.0) g/dL RDW Std Deviation (36.4-46.3) fL RDW Coeff of Elvia (11.5-14.5) % Plt Count (130-400) K/uL MPV (9.4-12.4) fL Immature Gran % (Auto) % Neut % (Auto) % Lymph % (Auto) % Price % (Auto) % Eos % (Auto) % Baso % (Auto) % Neut # (Auto) (1.40-6.50) K/uL Lymph # (Auto) (1.20-3.40) K/uL Price # (Auto) (0.11-0.59) K/uL Eos # (Auto) (0.00-0.50) K/uL Baso # (Auto) (0.00-0.20) K/uL Immature Gran # (Auto) (0.01-0.20) K/uL PT (9.0-12.0) Seconds INR (0.9-1.1) APTT (21-31) Seconds PTT Ratio VBG pH (7.36-7.41) VBG pCO2 (38-50) mmHg VBG pO2 mmHg VBG HCO3 VBG O2 Saturation % VBG Base Excess Sodium (136-145) mmol/L Potassium (3.5-5.1) mmol/L Chloride (98-107) mmol/L Carbon Dioxide (21-32) mmol/L Anion Gap (3-11) BUN (6-23) mg/dl Creatinine (0.6-1.4) mg/dl Est Cr Clr Drug Dosing ml/min Est GFR ( Amer) ml/min Est GFR (Non-Af Amer) ml/min BUN/Creatinine Ratio (10-20) Glucose 692 H* (70-99(Fasting)) mg/dl POC Glucose (70-99) mg/dl Estimat Average Glucose mg/dl Hemoglobin A1c (4.5-5.6) % Osmolality (280-300) mOsm/kg Calcium (8.6-10.3) mg/dl Magnesium (1.7-2.4) mg/dl Total Bilirubin (0.2-1.0) mg/dl AST (13-39) U/L ALT (7-52) U/L Alkaline Phosphatase (34-104) U/L Troponin I High Sens (0-20) pg/ml Total Protein (6.0-8.3) gm/dl Albumin (3.4-5.0) gm/dl Globulin (2.5-4.0) gm/dl Albumin/Globulin Ratio (0.9-2) Lipase (11-82) U/L Procalcitonin (0-0.5) ng/ml TSH (0.300-4.500) uIu/ml Urine Color Urine Appearance (Clear) Urine pH (4.5-7.5) Ur Specific Lacrosse (1.000-1.030) Urine Protein (Negative) Urine Glucose (UA) (Negative) Urine Ketones (Negative) Urine Blood (Negative) Urine Nitrite (Negative) Urine Bilirubin (Negative) Urine Urobilinogen (Negative) Ur Leukocyte Esterase (Negative) Urine WBC (Auto) (0-5) /hpf Urine RBC (Auto) (0-2) /hpf U Hyaline Cast (Auto) (0-2) /lpf U Epithel Cells (Auto) (0-2) /hpf Urine Bacteria (Auto) (None Seen) Ethyl Alcohol mg/dL (<10.0) mg/dl Imaging Data Radiologist's Impression: Abdomen/Pelvis CT 10/21/23 22:06 Exam(s): CT ABDOMEN + PELVIS Without Contrast EXAM: CT Abdomen and Pelvis Without Intravenous Contrast CLINICAL HISTORY: Reason for exam: abd pain, vomit, new onset diabetes. TECHNIQUE: Axial computed tomography images of the abdomen and pelvis without intravenous contrast. CTDI is 24 mGy and DLP is 1402 mGy-cm. Automated exposure control was utilized for the study. A dose lowering technique was utilized adhering to the principles of ALARA. COMPARISON: No relevant prior studies available. FINDINGS: Lung bases: Unremarkable. No mass. No consolidation. ABDOMEN: Liver: Fatty infiltration of liver. Gallbladder and bile ducts: Unremarkable. No calcified stones. No ductal dilation. Pancreas: Unremarkable. No ductal dilation. Spleen: Unremarkable. No splenomegaly. Adrenals: Unremarkable. No mass. Kidneys and ureters: Unremarkable. No obstructing stones. No hydronephrosis. Stomach and bowel: Distended stomach which is filled with liquid contents. No mucosal thickening. PELVIS: Appendix: No findings to suggest acute appendicitis. Bladder: Unremarkable. No stones. Reproductive: Unremarkable as visualized. ABDOMEN and PELVIS: Intraperitoneal space: Unremarkable. No free air. No significant fluid collection. Bones/joints: No acute fracture. No dislocation. Soft tissues: Unremarkable. Vasculature: Unremarkable. No abdominal aortic aneurysm. Lymph nodes: Unremarkable. No enlarged lymph nodes. IMPRESSION: Marked fluid-filled distention of the stomach Fatty infiltration of the liver Electronically signed by: Nikita Jordan MD 10/21/23 23:07 PM [facility] Narrative Physical exam and history were performed. Nursing notes, EMR, and Medication List were personally reviewed. No social concerns were identified as barriers to patients care. Patient appears to have several symptoms bringing him to the ER. On presentation he appears quite ill. Vitals are concerning and he is with tachypnea. Patient was seen immediately upon arrival to his ER room, and bedside glucose was performed and read as "HIGH", suggesting a level over 600. IV access x 2 was gathered and blood work was obtained. Patient was hydrated with 3 L normal saline. VBG gathered. IV insulin protocol was initiated. Patient's formal blood work is as above and was reviewed. He does have a slightly elevated white count of 12,000. He does not have significant anemia. Patient is very acidotic on VBG with a pH less than 7 pCO2 of 25. He does have multiple electrolyte imbalances, elevated creatinine at 1.94, and lab glucose of 845. Case was discussed with multiple members of the hospital team. I did evaluate the patient alongside my attending, Dr. Zapata, who remained involved in care and decision making. Additionally reached out to the [facility] hospitalist, as well as the ICU, and pharmacy. The patient does not seem well for discharge and escalation of care is felt to be necessary. The patient was started on a bicarb drip. Patient was reevaluated multiple times throughout the course of his stay, and blood work started to normalize and vital signs greatly improved here in the ER. The patient will be admitted through the [facility] team and sent to the ICU. Please see the hospitalist dictation for further patient course, plan, and disposition. The chart was completed utilizing [employer]dy Speech Voice Recognition Software. Grammatical errors, random word insertions, pronoun errors, and incomplete sentences are an occasional consequence of this system due to software limitations, ambient noise, and hardware issues. Any formal questions or concerns about the content, text, or information contained within the body of this dictation should be directly addressed to the provider for clarification. . Impression & Plan DKA (diabetic ketoacidosis), Diabetes mellitus, new onset, Acidosis due to secondary diabetes, Nausea and vomiting, Abdominal pain Discharge Plan Visit Data Chief Complaint: Shortness of Breath/Dyspnea Stated Complaint: SHORTNESS OF BREATH, BLACK VOMIT, NOT EATING ED Provider: Travon Zapata ED Midlevel Provider: Louie Fletcher Discharge Problem: DKA (diabetic ketoacidosis), Diabetes mellitus, new onset, Acidosis due to secondary diabetes, Nausea and vomiting, Abdominal pain
[2023-10-21 22:49] LABS: Troponin I High Sensitivity 4.1 pg/ml (0-20)
[2023-10-21 22:50] LABS: INR 0.9 (0.9-1.1); Partial Thromboplastin Ratio 1.1; Partial Thromboplastin Time 30 Seconds (21-31); Prothrombin Time 10.2 Seconds (9.0-12.0)
[2023-10-21] MEDS: SODIUM BICARBONATE 8.4% 100 MEQ in WATER, STERILE 1,000 ML IV STA (22:51)
[2023-10-21] MEDS: INSULIN REGULAR 250 UNITS in SODIUM CHLORIDE 0.9% 247.5 ML IV SCH (22:53)
[2023-10-21] MEDS: NovoLIN-R BOLUS FROM BAG IV ONE (22:53)
[2023-10-21 22:55] LABS: Basophils # (auto) 0.05 K/uL (0.00-0.20); Basophils % (auto) 0.4 %; Eosinophils # (auto) 0.01 K/uL (0.00-0.50); Eosinophils % (auto) 0.1 %; Immature Granulocytes # (auto) 0.11 K/uL (0.01-0.20); Immature Granulocytes % (auto) 0.9 %; Lymphocytes # (auto) 0.71 K/uL (1.20-3.40); Lymphocytes % (auto) 5.6 %; Monocytes # (auto) 0.27 K/uL (0.11-0.59); Monocytes % (auto) 2.1 %; Neutrophils # (auto) 11.54 K/uL (1.40-6.50); Neutrophils % (auto) 90.9 %; Thyroid Stimulating Hormone 0.56 uIu/ml (0.300-4.500)
--- NOTE | 2023-10-21 23:08 | CT Scan Report ---
Exam(s): CT ABDOMEN + PELVIS Without Contrast EXAM: CT Abdomen and Pelvis Without Intravenous Contrast CLINICAL HISTORY: Reason for exam: abd pain, vomit, new onset diabetes. TECHNIQUE: Axial computed tomography images of the abdomen and pelvis without intravenous contrast. CTDI is 24 mGy and DLP is 1402 mGy-cm. Automated exposure control was utilized for the study. A dose lowering technique was utilized adhering to the principles of ALARA. COMPARISON: No relevant prior studies available. FINDINGS: Lung bases: Unremarkable. No mass. No consolidation. ABDOMEN: Liver: Fatty infiltration of liver. Gallbladder and bile ducts: Unremarkable. No calcified stones. No ductal dilation. Pancreas: Unremarkable. No ductal dilation. Spleen: Unremarkable. No splenomegaly. Adrenals: Unremarkable. No mass. Kidneys and ureters: Unremarkable. No obstructing stones. No hydronephrosis. Stomach and bowel: Distended stomach which is filled with liquid contents. No mucosal thickening. PELVIS: Appendix: No findings to suggest acute appendicitis. Bladder: Unremarkable. No stones. Reproductive: Unremarkable as visualized. ABDOMEN and PELVIS: Intraperitoneal space: Unremarkable. No free air. No significant fluid collection. Bones/joints: No acute fracture. No dislocation. Soft tissues: Unremarkable. Vasculature: Unremarkable. No abdominal aortic aneurysm. Lymph nodes: Unremarkable. No enlarged lymph nodes. IMPRESSION: Marked fluid-filled distention of the stomach Fatty infiltration of the liver Electronically signed by: Nikita Jordan MD 10/21/23 23:07 PM
[2023-10-21 23:13] LABS: Estimated Average Glucose 263 mg/dl; Hemoglobin A1C 10.8 % (4.5-5.6)
--- NOTE | 2023-10-21 23:55 | History & Physical Report ---
Date of Service October 21, 2023 Assessment & Plan (1) Hyperglycemic crisis in diabetes mellitus: Plan: HHS/DKA combo New diagnosis of DM Hemoglobin A1c of 10.8 Patient prediabetic as per outpatient records, outpatient hemoglobin A1c of 5.8 from 2022 UGIB possibly from gastritis History GERD patient currently hemodynamically stable ARF secondary to illness Admit to ICU given severe metabolic acidosis IV insulin Pharmacy glycemic control consultation DM education IV PPI for UGIB GI consult if with further signs of GI bleed Keep patient n.p.o. for now given metabolic disturbances and GI bleed. Transfuse PRBC if H&H less than 7 and or for symptomatic anemia Monitor creatinine response to IVF, hold ARB until creatinine back to baseline DVT prophylaxis. SCDs Re: GI bleed Full code Patient partner requesting updates providers. Ottoniel Garcia, contact #[phone]. Total critical time was 45 minutes. Text document was generated using [employer] voice recognition software. It may contain grammatical or spelling errors. Kindly contact undersigned for clarification of any documentation item in question. History of Present Illness Chief Complaint: Abdominal pain, vomiting, peeing a lot Primary Care Provider: Dr. Terry History obtained from patient, family, and records. Medical history significant for hypertension, hyperlipidemia, prediabetes, GERD, past alcohol abuse. Patient has not been well for about a week. Frequent urination and increased thirst. Achy epigastric discomfort associated with nausea and dry heaving symptoms. No chest pain, a little short of breath. Coffee-ground emesis before leaving work last night. Patient partner suspicious of possible diabetes symptoms. Patient brought to ER for evaluation. BSG 800s. IV insulin initiated at the ER. 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 Allergies Allergy/AdvReac Type Severity Reaction Status Date / Time No Known Allergies Allergy Unverified 06/18/17 08:38 Home Medications Medication Instructions Recorded Confirmed Type citalopram 20 mg tablet 20 mg PO ONCE PM 10/21/23 10/21/23 History losartan 50 mg tablet 50 mg PO DIRECTED 10/21/23 10/21/23 History omeprazole 20 mg capsule,delayed 20 mg PO DIRECTED 10/21/23 10/21/23 History release Past Med/Surg History Problem List (Updated 10/22/23 @ 09:11 by Que Uribe MD) Hyperglycemic crisis in diabetes mellitus Anxiety disorder GERD (gastroesophageal reflux disease) Abdominal pain (Acute) Nausea and vomiting (Acute) Acidosis due to secondary diabetes (Acute) DKA (diabetic ketoacidosis) (Acute) Diabetes mellitus, new onset (Acute) Surgical History (Updated 10/21/23 @ 22:50 by Louie Fletcher PA-C) No significant past surgical history Social History Smoking Status: Former smoker Do You Dip or Chew Tobacco: Yes (zyn pouches); Hx Alcohol Use: No Hx Substance Use: No Preferred Language: Greenlandic Communication Ability: Effective Driller Brake Lining Required: No Beliefs That Will Affect Care: None Current Living Situation: Alone Other Information That Helps Us Care for You: No Feels Safe at Home: Yes Safety Concerns: Feels Safe At This Time Assistive Devices: Glasses Review of Systems Review of Systems: As per HPI, all other systems reviewed and negative Physical Exam Physical Exam: GENERAL: Comfortable, pleasant, no respiratory distress SKIN: Normal color, warm HEENT: [place] palpebral conjunctivae, no ptosis, dry buccal mucosa NECK : Supple, no tenderness CHEST : CTA, no tenderness HEART : Tachycardic, no obvious murmurs ABDOMEN: Some distention, epigastric tenderness EXTREMITIES : No LE swelling/tenderness, no other conspicuous deformities noted NEUROLOGIC : Coherent, no facial asymmetry, no other gross focality Results & Data Results & Data Vital Signs (Past 12 Hours) Vital Signs Temp Pulse Pulse Resp BP BP Pulse Ox 10/21/23 23:15 108 H 31 H 100 10/21/23 23:03 109 H 35 H 143/85 H 100 10/21/23 22:48 30 H 128/84 100 10/21/23 22:38 113 H 10/21/23 22:33 116 H 36 H 146/89 H 10/21/23 22:24 116 H 34 H 99 10/21/23 22:24 117 H 33 H 127/89 10/21/23 22:24 98 10/21/23 22:21 120 H 35 H 127/89 99 10/21/23 21:48 35.6 C L 135 H 22 122/89 100 O2 Del Method 10/21/23 23:15 Room Air 10/21/23 23:03 Room Air 10/21/23 22:48 Room Air 10/21/23 22:38 10/21/23 22:33 10/21/23 22:24 Room Air 10/21/23 22:24 10/21/23 22:24 Room Air 10/21/23 22:21 Room Air 10/21/23 21:48 Room Air Laboratory Results Laboratory Results WBC 12.69 K/ul (4.8-10.8) H 10/21/23 22:10 RBC 5.03 M/uL (4.70-6.10) 10/21/23 22:10 Hgb 14.8 g/dl (14.0-18.0) 10/21/23 22:10 Hct 46.4 % (42.0-52.0) 10/21/23 22:10 MCV 92.2 fL (80.0-100.0) 10/21/23 22:10 MCH 29.4 pg (25.0-34.0) 10/21/23 22:10 MCHC 31.9 g/dL (32.0-36.0) L 10/21/23 22:10 RDW Std Deviation 44.6 fL (36.4-46.3) 10/21/23 22:10 RDW Coeff of Elvia 13.2 % (11.5-14.5) 10/21/23 22:10 Plt Count 413 K/uL (130-400) H 10/21/23 22:10 MPV 11.9 fL (9.4-12.4) 10/21/23 22:10 Immature Gran % (Auto) 0.9 % 10/21/23 22:10 Neut % (Auto) 90.9 % 10/21/23 22:10 Lymph % (Auto) 5.6 % 10/21/23 22:10 [place] % (Auto) 2.1 % 10/21/23 22:10 Eos % (Auto) 0.1 % 10/21/23 22:10 Baso % (Auto) 0.4 % 10/21/23 22:10 Neut # (Auto) 11.54 K/uL (1.40-6.50) H 10/21/23 22:10 Lymph # (Auto) 0.71 K/uL (1.20-3.40) L 10/21/23 22:10 [place] # (Auto) 0.27 K/uL (0.11-0.59) 10/21/23 22:10 Eos # (Auto) 0.01 K/uL (0.00-0.50) 10/21/23 22:10 Baso # (Auto) 0.05 K/uL (0.00-0.20) 10/21/23 22:10 Immature Gran # (Auto) 0.11 K/uL (0.01-0.20) 10/21/23 22:10 PT 10.2 Seconds (9.0-12.0) 10/21/23 22:10 INR 0.9 (0.9-1.1) 10/21/23 22:10 APTT 30 Seconds (21-31) 10/21/23 22:10 PTT Ratio 1.1 10/21/23 22:10 VBG pH < 7.00 (7.36-7.41) L 10/21/23 22:10 VBG pCO2 25 mmHg (38-50) L 10/21/23 22:10 VBG pO2 42 mmHg 10/21/23 22:10 VBG HCO3 TNP 10/21/23 22:10 VBG O2 Saturation 70.6 % 10/21/23 22:10 VBG Base Excess TNP 10/21/23 22:10 Sodium 125 mmol/L (136-145) L 10/21/23 22:10 Potassium 5.4 mmol/L (3.5-5.1) H 10/21/23 22:10 Chloride 88 mmol/L (98-107) L 10/21/23 22:10 Carbon Dioxide 6 mmol/L (21-32) L* 10/21/23 22:10 Anion Gap 31 (3-11) H 10/21/23 22:10 BUN 46 mg/dl (6-23) H 10/21/23 22:10 Creatinine 1.94 mg/dl (0.6-1.4) H 10/21/23 22:10 Est Cr Clr Drug Dosing 54.4 ml/min 10/21/23 22:10 Est GFR ( Amer) 49.1 ml/min 10/21/23 22:10 Est GFR (Non-Af Amer) 42.4 ml/min 10/21/23 22:10 BUN/Creatinine Ratio 23.7 (10-20) H 10/21/23 22:10 Glucose 845 mg/dl (70-99(Fasting)) H* 10/21/23 22:10 POC Glucose > 600 mg/dl (70-99) H* 10/21/23 22:02 Estimat Average Glucose 263 mg/dl 10/21/23 22:10 Hemoglobin A1c 10.8 % (4.5-5.6) H 10/21/23 22:10 Calcium 8.9 mg/dl (8.6-10.3) 10/21/23 22:10 Magnesium 2.4 mg/dl (1.7-2.4) 10/21/23 22:10 Total Bilirubin 0.4 mg/dl (0.2-1.0) 10/21/23 22:10 AST 12 U/L (13-39) L 10/21/23 22:10 ALT 31 U/L (7-52) 10/21/23 22:10 Alkaline Phosphatase 137 U/L (34-104) H 10/21/23 22:10 Troponin I High Sens 4.1 pg/ml (0-20) 10/21/23 22:10 Total Protein 8.0 gm/dl (6.0-8.3) 10/21/23 22:10 Albumin 4.8 gm/dl (3.4-5.0) 10/21/23 22:10 Globulin 3.2 gm/dl (2.5-4.0) 10/21/23 22:10 Albumin/Globulin Ratio 1.5 (0.9-2) 10/21/23 22:10 Lipase 46 U/L (11-82) 10/21/23 22:10 Procalcitonin 0.15 ng/ml (0-0.5) 10/21/23 22:10 TSH 0.560 uIu/ml (0.300-4.500) 10/21/23 22:10 Ethyl Alcohol mg/dL < 10.0 mg/dl (<10.0) 10/21/23 22:59 Impressions Abdomen/Pelvis CT 10/21/23 22:06 Exam(s): CT ABDOMEN + PELVIS Without Contrast EXAM: CT Abdomen and Pelvis Without Intravenous Contrast CLINICAL HISTORY: Reason for exam: abd pain, vomit, new onset diabetes. TECHNIQUE: Axial computed tomography images of the abdomen and pelvis without intravenous contrast. CTDI is 24 mGy and DLP is 1402 mGy-cm. Automated exposure control was utilized for the study. A dose lowering technique was utilized adhering to the principles of ALARA. COMPARISON: No relevant prior studies available. FINDINGS: Lung bases: Unremarkable. No mass. No consolidation. ABDOMEN: Liver: Fatty infiltration of liver. Gallbladder and bile ducts: Unremarkable. No calcified stones. No ductal dilation. Pancreas: Unremarkable. No ductal dilation. Spleen: Unremarkable. No splenomegaly. Adrenals: Unremarkable. No mass. Kidneys and ureters: Unremarkable. No obstructing stones. No hydronephrosis. Stomach and bowel: Distended stomach which is filled with liquid contents. No mucosal thickening. PELVIS: Appendix: No findings to suggest acute appendicitis. Bladder: Unremarkable. No stones. Reproductive: Unremarkable as visualized. ABDOMEN and PELVIS: Intraperitoneal space: Unremarkable. No free air. No significant fluid collection. Bones/joints: No acute fracture. No dislocation. Soft tissues: Unremarkable. Vasculature: Unremarkable. No abdominal aortic aneurysm. Lymph nodes: Unremarkable. No enlarged lymph nodes. IMPRESSION: Marked fluid-filled distention of the stomach Fatty infiltration of the liver Electronically signed by: Nikita Jordan MD 10/21/23 23:07 PM Diagnostic Findings EKG as per my interpretation :Rate 125, sinus tachycardia, normal axis, no ischemia
[2023-10-22 00:17] LABS: Appearance Urine Clear (Clear); Bacteria Urine Automated None Seen (None Seen); Bilirubin Urine Negative (Negative); Blood Urine Negative (Negative); Cast Urine Automated 0-2 /lpf (0-2); Color Urine Yellow; Epithelial Cell Urine Auto 0-2 /hpf (0-2); Glucose Urine UA 2+ (Negative); Ketones Urine 4+ (Negative); Leukocyte Esterase Urine Negative (Negative); Nitrite Urine Negative (Negative); Protein Urine Trace (Negative); RBC Urine Automated 0-2 /hpf (0-2); Specific Gravity Urine 1.025 (1.000-1.030); Urobilinogen Urine Negative (Negative); WBC Urine Automated 0-5 /hpf (0-5)
[2023-10-22] MEDS ORDERED: PROMETHAZINE HCL 6.25 MG in SODIUM CHLORIDE 0.9% 50 ML IV PRN (00:27)
[2023-10-22] MEDS ORDERED: LORazepam 0.5 MG TAB PO PRN (00:27)
[2023-10-22] MEDS ORDERED: oxyCODONE HCL IR 5 MG TAB (IMMEDIATE RELEASE) PO PRN (00:27)
--- NOTE | 2023-10-22 00:38 | Emergency Department Note ---
ED Visit Note I was consulted by the Advanced Practice Provider. I personally made/approved the management plan and take responsibility for the patient management. I performed a substantive portion of the visit. This includes the aspects of: This patient comes in after not feeling well having vomiting and being short of breath. He was found to have a blood sugar greater than 600 x 2 so we are very suspicious for DKA his labs were very metabolically deranged. He has been treated with IV fluids IV insulin and bicarb we did consult the hospital pharmac ist. With these measures he is starting to feel better but will need to be admitted. On my exam he is mildly tachypneic but answers questions appropriately. He does appear to be dry in his mucous membranes. Louie also talked to the ICU and the hospitalist. He does have DKA. .
[2023-10-22] MEDS: PANTOprazole 80 MG in DEXTROSE 5% 100 ML IV STA (00:53)
[2023-10-22] MEDS: THIAMINE HCL 100 MG in SYRINGE 9 ML IV STA (00:58)
[2023-10-22] MEDS: SODIUM CHLORIDE 0.9% 1,000 ML IV ONE (02:01)
[2023-10-22] MEDS: SODIUM CHLORIDE 0.9% 500 ML IV ONE (02:02)
--- NOTE | 2023-10-22 02:14 | Critical Care Consultation ---
Date of Consultation October 22, 2023 Assessment & Plan (1) DKA (diabetic ketoacidosis): Reason Critically Ill: 38-year-old male with new onset diabetes, presents to the ICU with DKA and severe metabolic acidosis. Currently undergoing treatment with insulin drip and fluid resuscitation per DKA protocol. Neuro - [facility] ICU: Negative Anxiety disordercontinue citalopram Cardiac - HTNcurrently normotensive. Holding lisinopril for now. Continuous monitoring on Telemetry Respiratory - No history of pulmonary disease. Shortness of breath likely compensatory to metabolic acidosis. No respiratory distress. Continuous monitoring pulse ox GI - N.p.o. for now. Advance diet as tolerated GERDomeprazole RENAL/LYTES - AKIcreatinine 1.9, no previous history of renal disease. Likely prerenal in the setting of DKA/intravascular dehydration. Expect to improve with fluid resuscitation. Avoid nephrotoxins and renally adjust medications for now. Continue with IV fluids per DKA protocol. Monitor with routine BMPs - Strict I's and O's ENDO - DKA No previous history of diabetes mellitus. Patient now presents with anion gap 32, HCO3 6, plus for ketones, and BSG 845 - Continue with insulin drip and fluid resuscitation per DKA protocol -Acidosis is improving. Will hold on further bicarb administration for now -Hemoglobin A1c pending - Consult adult educator - Trend VBG's and BMPs every 4 hours until gap closed. Then can transition to basal bolus/sliding scale HEME - H&H stable, monitor routine CBC ID - No indication for infectious process at this time LINES/IV ACCESS - Peripheral IVs DVT PROPHYLAXIS - SCDs I have personally spent 38 minutes of critical care time in the direct management of this patient. This is a life/limb threatening event. This includes time spent evaluating patient, direct bedside care, chart review, placing orders, interpretation of diagnostic studies, discussion with consultants, patient, and family members, as well as other required patient management activities. This time is exclusive of all separately billable procedures, and teaching time and separate from and in addition to any other critical care service time. Thank you for allowing us to participate in the care of this patient. Please refer to my attending physician's documentation for any further recommendations. (2) Diabetes mellitus, new onset: (3) Hypertension: (4) GERD (gastroesophageal reflux disease): (5) Anxiety disorder: History of Present Illness Attending Physician: Lyudmila Talley MD History of Present Illness Patient is a 38-year-old male with past medical history HTN, GERD, anxiety disorder who presented to the emergency department earlier this evening with symptoms of abdominal pain, vomiting, and shortness of breath that began about a week ago, and progressively worsened. Patient also notes that he has been extremely thirsty and drinking large quantities of water throughout the week. He also had 1 episode of emesis earlier yesterday morning. Patient was found to be significantly hyperglycemic, with metabolic acidosis and positive ketones in urine. He has no previous history of diabetes. He was given IV insulin and crystalloid bolus, and 1 amp bicarb push for significant acidosis with pH less than 7. Patient now being transferred to ICU for further monitoring and management. On arrival to the ICU the patient is alert and oriented without acute distress and hemodynamically stable. He is noted to be tachycardic with heart rate in the 1 teens on the monitor, normal respiratory rate, and normotensive. He denies any headache, dizziness, or syncopal events. He denies changes in vision, recent illness or fevers, cough or congestion, chest pain or palpitations, swelling in hands or feet, changes in gait, diarrhea. Patient does report frequent urination and feeling thirsty over the past week. He reports shortness of breath, and abdominal pain also. Patient does note that when he vomited yesterday it was dark in color. Allergies Allergy/AdvReac Type Severity Reaction Status Date / Time No Known Allergies Allergy Unverified 06/18/17 08:38 Home Medications Medication Instructions Recorded Confirmed Type citalopram 20 mg tablet 20 mg PO ONCE PM 10/21/23 10/21/23 History losartan 50 mg tablet 50 mg PO DIRECTED 10/21/23 10/21/23 History omeprazole 20 mg capsule,delayed 20 mg PO DIRECTED 10/21/23 10/21/23 History release Patient History Surgical History (Updated 10/21/23 @ 22:50 by Louie Fletcher PA-C) No significant past surgical history Social History Smoking Status: Former smoker Do You Dip or Chew Tobacco: Yes (zyn pouches); Hx Alcohol Use: No Hx Substance Use: No Preferred Language: Amharic Communication Ability: Effective Wire Frame Dipper Required: No Beliefs That Will Affect Care: None Current Living Situation: Alone Other Information That Helps Us Care for You: No Feels Safe at Home: Yes Safety Concerns: Feels Safe At This Time Assistive Devices: Glasses Review of Systems Review of Systems: All systems reviewed & are unremarkable except as noted in HPI & below Physical Exam Constitutional: cooperative and comfortable Eyes: PERRL, conjunctivae normal, anicteric sclerae ENMT: external ear and nose normal, oropharynx normal Neck: trachea midline, no thyromegaly Respiratory: normal respiratory effort, lungs clear to auscultation Cardiovascular: Rate/Rhythm: regular rate and + tachycardic Heart Sounds: normal S1 and normal S2; no murmur Extremities: no edema Gastrointestinal (Abdomen): normal bowel sounds, soft, nontender, no hepatosplenomegaly Musculoskeletal: no cyanosis or clubbing, extremities motor strength 5/5 Skin: no rashes, warm and dry Neurologic: PERRL, EOMI, accommodation nl, no face palsy, no dysarthria Psychiatric: A+Ox3, euthymic affect Results & Data Results & Data Vital Signs (Past 12 Hours) Vital Signs Temp Pulse Pulse Resp BP BP BP 10/22/23 01:54 36.8 C 113 H 16 146/93 H 10/22/23 01:38 10/22/23 01:00 106 H 22 150/95 H 10/22/23 00:30 103 H 23 174/104 H 10/22/23 00:00 141/105 H 10/21/23 23:51 103 H 26 H 10/21/23 23:36 106 H 27 H 10/21/23 23:15 108 H 31 H 10/21/23 23:03 109 H 35 H 143/85 H 10/21/23 22:48 30 H 128/84 10/21/23 22:38 113 H 10/21/23 22:33 116 H 36 H 146/89 H 10/21/23 22:24 116 H 34 H 10/21/23 22:24 117 H 33 H 127/89 10/21/23 22:24 10/21/23 22:21 120 H 35 H 127/89 10/21/23 21:48 35.6 C L 135 H 22 122/89 Pulse Ox O2 Del Method 10/22/23 01:54 100 Room Air 10/22/23 01:38 Room Air 07/29/24 01:00 100 Room Air 10/22/23 00:30 10/22/23 00:00 10/21/23 23:51 100 Room Air 10/21/23 23:36 100 Room Air 10/21/23 23:15 100 Room Air 10/21/23 23:03 100 Room Air 10/21/23 22:48 100 Room Air 10/21/23 22:38 10/21/23 22:33 10/21/23 22:24 99 Room Air 10/21/23 22:24 10/21/23 22:24 98 Room Air 10/21/23 22:21 99 Room Air 10/21/23 21:48 100 Room Air Coding Level of Care Code 93242 CRITICAL CARE 1ST 30-74M Diagnoses DKA (diabetic ketoacidosis) E11.10 Diabetes mellitus, new onset E11.9 Hypertension I10 GERD (gastroesophageal reflux disease) K21.9 Anxiety disorder F41.9
[2023-10-22 02:24] LABS: Basophils # (auto) 0.03 K/uL (0.00-0.20); Basophils % (auto) 0.3 %; Eosinophils # (auto) 0.01 K/uL (0.00-0.50); Eosinophils % (auto) 0.1 %; Hematocrit (blood only) 37.8 % (42.0-52.0); Hemoglobin 12.3 g/dl (14.0-18.0); Immature Granulocytes # (auto) 0.11 K/uL (0.01-0.20); Lymphocytes # (auto) 0.89 K/uL (1.20-3.40); Lymphocytes % (auto) 8.1 %; Mean Corpuscular Hemoglobin 29.5 pg (25.0-34.0); Mean Corpuscular Hgb Conc 32.5 g/dL (32.0-36.0); Mean Corpuscular Volume 90.6 fL (80.0-100.0); Mean Platelet Volume 11.8 fL (9.4-12.4); Monocytes # (auto) 0.61 K/uL (0.11-0.59); Monocytes % (auto) 5.6 %; Neutrophils # (auto) 9.29 K/uL (1.40-6.50); Neutrophils % (auto) 84.9 %; Platelet Count 276 K/uL (130-400); RDW Coefficient of Variation 12.9 % (11.5-14.5); RDW Standard Deviation 42.4 fL (36.4-46.3); Red Blood Count 4.17 M/uL (4.70-6.10); White Blood Count 10.94 K/ul (4.8-10.8)
[2023-10-22 02:45] LABS: BUN Creatinine Ratio 35.3 (10-20); Creatinine Clr Calc Pharmacy 83.1 ml/min; Est GFR (African American) 73.5 ml/min; Est GFR (Non-African American) 63.4 ml/min; Potassium 3.9 mmol/L (3.5-5.1)
[2023-10-22] MEDS ORDERED: SODIUM CHLORIDE 0.45 % 1,000 ML IV SCH (03:00)
[2023-10-22] MEDS ORDERED: PENDING 1/2NSS+40mEq KCL IVF SCH (03:00)
[2023-10-22] MEDS: POTASSIUM CHLORIDE 40 MEQ in SODIUM CHLORIDE 0.45 % 1,000 ML IV SCH (03:46)
[2023-10-22] MEDS ORDERED: PENDING D5 1/2NS+40mEq KCL IVF SCH (04:00)
[2023-10-22 06:13] LABS: BUN Creatinine Ratio 40.9 (10-20); Calcium 7.1 mg/dl (8.6-10.3); Est GFR (African American) 97.5 ml/min; Est GFR (Non-African American) 84.1 ml/min
--- NOTE | 2023-10-22 07:23 | XRay Report ---
XR chest 1V portable HISTORY: 38 years-old Male renal failure acute shortness of breath with renal failure COMPARISON: CT of same day TECHNIQUE: AP view of the chest FINDINGS: Cardiac silhouette is normal in size. The lungs are clear. No pneumothorax or pleural effusion. Bones appear grossly intact. IMPRESSION: No acute process. ACT 112: Negative or not required by law. The above report was generated using voice recognition software. It may contain grammatical, syntax o r spelling errors. Electronically signed by: Piotr Nam M.D. 10/22/2023 7:21 AM
--- NOTE | 2023-10-22 07:26 | Communication Note ---
Date of Service: October 22, 2023 Patient seen and examined. EMR reviewed. Discussed with critical care YUE and agree with assessment plan as noted. Discussed on multidisciplinary rounds with bedside critical care nurse. Continues to improve. Will continue insulin drip until anion gap is closed. Continue electrolyte replacement protocols. Will give an additional 2 L of crystalloid this morning given his persistent tachycardia and likely significant volume depletion. Once the patient's insulin drip has been discontinued and has been transitioned to subcutaneous insulin, will be eligible to transfer out of the ICU to the floor. Coding Level of Care Code None
[2023-10-22] MEDS: LACTATED RINGER'S 2,000 ML IV ONE (07:30)
[2023-10-22] MEDS: INSULIN ASPART PER UNIT CHARGE SC SCH ×2 (08:01→11:56)
[2023-10-22] MEDS: PANTOprazole 40 MG in SYRINGE 0 ML IV SCH (08:02)
[2023-10-22] MEDS: POTASSIUM CHLORIDE 40 MEQ in D5W AND 1/2NSS 1,000 ML IV SCH (08:12)
--- NOTE | 2023-10-22 08:57 | Hospitalist Progress Note ---
Date of Service October 22, 2023 Assessment & Plan (1) Hyperglycemic crisis in diabetes mellitus: Plan Pt is a 38yoM with PMHx significant for hypertension, hyperlipidemia, prediabetes, GERD, past alcohol abuse presenting with DKA/HHS. HHS/DKA combo New diagnosis of DM Hemoglobin A1c of 10.8 Patient prediabetic as per outpatient records outpatient hemoglobin A1c of 5.8 from 2022 Admitted initially to the ICU given severe metabolic acidosis IV insulin, switch to SQ insulin IV fluids Pharmacy glycemic control consultation DM education Downgraded as gap closed Continue to monitor Improving UGIB possibly from gastritis IV PPI for UGIB GI consult if with further signs of GI bleed patient currently hemodynamically stable Transfuse PRBC if H&H less than 7 and or for symptomatic anemia consider GI consult ARF secondary to illness Monitor creatinine response to IVF, hold ARB until creatinine back to baseline Diet: DM DVT prophylaxis. SCDs Re: GI bleed Dispo: home once medically stable Admission and Anticipated Discharge Date Admission Date: October 21, 2023 Subjective pt seen with partner at bedside Complains of epigastric pain States symptoms much improved however Review of Systems Review of Systems: All systems reviewed & are unremarkable except as noted in Subjective Physical Exam Physical Exam: General: Alert, oriented. No acute distress Psych: Appropriate mood and affect HEENT: NC/AT CV: RRR Resp: Breath sounds clear bilaterally, no increased effort of breathing. Abdomen: . Soft, tender in epigastrium Extremities: No edema in lower extremities bilaterally. Results & Data Results & Data Vital Signs (Past 12 Hours) Vital Signs Temp Pulse Pulse Resp BP BP BP 10/22/23 08:00 36.8 C 103 H 22 131/82 10/22/23 07:00 112 H 22 126/87 10/22/23 06:12 113 H 20 10/22/23 05:51 126 H 18 10/22/23 05:30 115 H 21 10/22/23 05:21 118 H 24 10/22/23 05:12 117 H 23 10/22/23 05:06 115 H 23 10/22/23 05:00 128/82 10/22/23 05:00 128/82 10/22/23 05:00 128/82 10/22/23 04:57 114 H 24 10/22/23 04:51 115 H 22 10/22/23 04:21 113 H 22 10/22/23 04:12 120 H 16 10/22/23 04:09 114 H 20 10/22/23 04:00 135/88 10/22/23 04:00 135/88 10/22/23 03:54 114 H 24 10/22/23 03:23 110 H 10/22/23 03:09 114 H 23 10/22/23 03:00 149/87 H 10/22/23 03:00 149/87 H 10/22/23 02:09 113 H 22 10/22/23 02:06 116 H 25 H 10/22/23 02:00 153/87 H 10/22/23 01:57 109 H 25 H 10/22/23 01:54 36.8 C 113 H 16 146/93 H 10/22/23 01:53 146/93 H 10/22/23 01:53 146/93 H 10/22/23 01:38 10/22/23 01:24 107 H 24 10/22/23 01:00 150/95 H 10/22/23 01:00 99 H 28 H 10/22/23 01:00 106 H 22 150/95 H 10/22/23 00:30 103 H 23 174/104 H 10/22/23 00:00 141/105 H 10/21/23 23:51 103 H 26 H 10/21/23 23:36 106 H 27 H 10/21/23 23:15 108 H 31 H 10/21/23 23:03 109 H 35 H 143/85 H 10/21/23 22:48 30 H 128/84 10/21/23 22:38 113 H 10/21/23 22:33 116 H 36 H 146/89 H 10/21/23 22:24 116 H 34 H 10/21/23 22:24 117 H 33 H 127/89 10/21/23 22:24 10/21/23 22:21 120 H 35 H 127/89 10/21/23 21:48 35.6 C L 135 H 22 122/89 Pulse Ox O2 Del Method 10/22/23 08:00 99 10/22/23 07:00 98 Room Air 10/22/23 06:12 99 10/22/23 05:51 100 10/22/23 05:30 98 10/22/23 05:21 99 10/22/23 05:12 98 10/22/23 05:06 98 10/22/23 05:00 10/22/23 05:00 10/22/23 05:00 10/22/23 04:57 97 10/22/23 04:51 99 10/22/23 04:21 98 10/22/23 04:12 98 10/22/23 04:09 99 10/22/23 04:00 10/22/23 04:00 10/22/23 03:54 99 10/22/23 03:23 10/22/23 03:09 99 10/22/23 03:00 10/22/23 03:00 10/22/23 02:09 99 10/22/23 02:06 100 10/22/23 02:00 10/22/23 01:57 100 10/22/23 01:54 100 Room Air 10/22/23 01:53 10/22/23 01:53 10/22/23 01:38 Room Air 10/22/23 01:24 10/22/23 01:00 10/22/23 01:00 10/22/23 01:00 100 Room Air 10/22/23 00:30 10/22/23 00:00 10/21/23 23:51 100 Room Air 10/21/23 23:36 100 Room Air 10/21/23 23:15 100 Room Air 10/21/23 23:03 100 Room Air 10/21/23 22:48 100 Room Air 10/21/23 22:38 10/21/23 22:33 10/21/23 22:24 99 Room Air 10/21/23 22:24 10/21/23 22:24 98 Room Air 10/21/23 22:21 99 Room Air 10/21/23 21:48 100 Room Air
[2023-10-22 10:22] LABS: BUN Creatinine Ratio 33.3 (10-20); Calcium 7.6 mg/dl (8.6-10.3); Est GFR (African American) 103.1 ml/min; Potassium 3.6 mmol/L (3.5-5.1)
--- NOTE | 2023-10-22 11:23 | Pharmacy Report ---
Pharmacy Glycemic Short Note 2 - Date of Service October 22, 2023 - Glycemic Short BSG Results (Last 24 hours): 10/21/23 10/21/23 10/21/23 22:01 22:02 22:10 Glucose 845 H* POC Glucose > 600 H* > 600 H* 10/21/23 10/21/23 10/22/23 23:49 23:53 01:40 Glucose 692 H* POC Glucose > 600 H* 536 H* 10/22/23 10/22/23 10/22/23 02:07 02:49 03:52 Glucose 515 H* POC Glucose 466 H* 462 H* 10/22/23 10/22/23 10/22/23 04:58 05:40 06:04 Glucose 283 H POC Glucose 303 H* 269 H 10/22/23 10/22/23 10/22/23 07:03 08:04 08:58 Glucose POC Glucose 270 H 209 H 224 H 10/22/23 10/22/23 10/22/23 09:53 09:56 11:04 Glucose 168 H POC Glucose 167 H 171 H OUTPATIENT ANTIDIABETIC REGIMEN: * None * HbA1c 10.8% on 10/21/23 ASSESSMENT: * 38 yo M with new-onset diabetes - type 1 vs type 2 not definitively determined at this time * Initiated on insulin drip * Anion gap now normalized although CO2 does remain a little low * D/w Dr. Eugene - plan to start diet, stop IVF containing D5W, and noted OK to start basal insulin in an attempt to transition off drip * Drip currently running at >14 units/hr - may be difficult to transition off today but will start the process by starting basal SC insulin * Fixed CHO ratio while transitioning off drip PLAN FOR INPATIENT GLYCEMIC CONTROL: * Insulin drip * Attempting transition * Adjusted goal range to 140-180 mg/dL * Empirically halved rate to 7 units due to stopping of D5W, which may also help facilitate transition off of the drip. Ongoing titration per protocol * Basal insulin * Lantus 35 units SQ x1. Additional 5-10 units tonight if drip still running >2 units/hr * Bolus insulin - while transitioning off drip * NovoLog per scale ACHS * Nutritional / Prandial insulin per carb ratio of 1 unit per 7 grams CHO consumed * Parameters for drip discontinuation (all three) * Minimum of 4 hours since Lantus administration * BSG less than 180 mg/dL x2 consecutive checks * Insulin drip rate <2 units/hr (note - holding the drip per protocol parameters does not satisfy this criteria if prior rate was greater than 2 units/hr) * Bolus insulin - after drip transition * NovoLog per scale ACHS w two overnight checks tonight * Goal Range: Low 120 mg/dL - High 150 mg/dL * Correction Factor: 25 mg/dL/unit * Nutritional / Prandial insulin per carb ratio of 1 unit per 8 grams CHO consumed
[2023-10-22] MEDS: LANTUS PER UNIT CHARGE SC STA (11:55)
[2023-10-22] MEDS: ACETAMINOPHEN 500 MG TAB PO PRN (14:00)
[2023-10-22] MEDS: LANTUS PER UNIT CHARGE SC ONE (21:11)
[2023-10-22] MEDS: CITALOPRAM 20 MG TAB PO SCH (21:12)
[2023-10-23 05:38] LABS: Albumin Globulin Ratio 1.7 (0.9-2); Albumin Level 3.4 gm/dl (3.4-5.0); BUN Creatinine Ratio 20.5 (10-20); Bilirubin,Total 0.4 mg/dl (0.2-1.0); Calcium 8.2 mg/dl (8.6-10.3); Creatinine Clr Calc Pharmacy 158.2 ml/min; Est GFR (African American) 135.4 ml/min; Est GFR (Non-African American) 116.8 ml/min; Phosphorus 1.1 mg/dl (2.5-4.9); Total Protein 5.4 gm/dl (6.0-8.3)
[2023-10-23] MEDS ORDERED: POTASSIUM PHOS 3 MMOL/1 ML INFUSION IV STA (05:56)
--- NOTE | 2023-10-23 06:07 | Electrocardiogram Report ---
Test Reason : Blood Pressure : / mmHG Vent. Rate : 124 BPM Atrial Rate : 124 BPM P-R Int : 148 ms QRS Dur : 090 ms QT Int : 336 ms P-R-T Axes : 056 048 047 degrees QTc Int : 482 ms Sinus tachycardia Otherwise normal ECG No previous ECGs available Confirmed by Nick Bay ([id number]) on 10/23/2023 6:07:42 AM Referred By: REFERRED SELF Confirmed By:Nick Bay
[2023-10-23 06:16] LABS: Basophils # (auto) 0.01 K/uL (0.00-0.20); Basophils % (auto) 0.2 %; Eosinophils # (auto) 0.02 K/uL (0.00-0.50); Eosinophils % (auto) 0.4 %; Hematocrit (blood only) 29.7 % (42.0-52.0); Hemoglobin 10.2 g/dl (14.0-18.0); Immature Granulocytes # (auto) 0.02 K/uL (0.01-0.20); Immature Granulocytes % (auto) 0.4 %; Lymphocytes # (auto) 1.11 K/uL (1.20-3.40); Mean Corpuscular Hemoglobin 29.3 pg (25.0-34.0); Mean Corpuscular Hgb Conc 34.3 g/dL (32.0-36.0); Mean Corpuscular Volume 85.3 fL (80.0-100.0); Mean Platelet Volume 10.9 fL (9.4-12.4); Monocytes # (auto) 0.35 K/uL (0.11-0.59); Monocytes % (auto) 6.3 %; Neutrophils # (auto) 4.04 K/uL (1.40-6.50); Neutrophils % (auto) 72.7 %; Platelet Count 164 K/uL (130-400); RDW Coefficient of Variation 12.8 % (11.5-14.5); RDW Standard Deviation 39.4 fL (36.4-46.3); Red Blood Count 3.48 M/uL (4.70-6.10); White Blood Count 5.55 K/ul (4.8-10.8)
[2023-10-23] MEDS: POTASSIUM CHLORIDE CRTAB 20 MEQ TABCR PO STA (06:27)
[2023-10-23] MEDS: POTASSIUM PHOSPHATE 40 MMOL in SODIUM CHLORIDE 0.9% 1,000 ML IV ONE (06:27)
[2023-10-23] MEDS: POTASSIUM CHLORIDE CRTAB 20 MEQ TABCR PO ONE (07:40)
[2023-10-23] MEDS: LANTUS PER UNIT CHARGE SC ONE (07:40)
--- NOTE | 2023-10-23 09:51 | Hospitalist Progress Note ---
Date of Service October 23, 2023 Assessment & Plan (1) Hyperglycemic crisis in diabetes mellitus: Plan Pt is a 38yoM with PMHx significant for hypertension, hyperlipidemia, prediabetes, GERD, past alcohol abuse presenting with DKA/HHS. HHS/DKA combo New diagnosis of DM Hemoglobin A1c of 10.8 Patient prediabetic as per outpatient records outpatient hemoglobin A1c of 5.8 from 2022 Admitted initially to the ICU given severe metabolic acidosis IV insulin initially, switched to SQ insulin IV fluids Pharmacy glycemic control consultation DM education Downgraded as gap closed Continue to monitor Improving UGIB Epigastric pain possibly from gastritis IV PPI for UGIB, switched to po ppi CT abd/pelvis noting markedly distended stomach, pt with persistent epigastric pain GI consulted, appreciate recs patient currently hemodynamically stable Transfuse PRBC if H&H less than 7 and or for symptomatic anemia Hypophosphatemia Replete as needed ARF secondary to illness Monitor creatinine response to IVF Home losartan restarted Improved Mood Disorder Continue home med Diet: DM, put back on full liquids to help with epigastric pain DVT prophylaxis. SCDs Re:possible GI bleed Dispo: home once medically stable Admission and Anticipated Discharge Date Admission Date: October 21, 2023 Subjective pt was seen in AM. States still not able to eat like he would like to. Notes continued epigastric pain Review of Systems Review of Systems: All systems reviewed & are unremarkable except as noted in Subjective Physical Exam Physical Exam: General: Alert, oriented. No acute distress Psych: Appropriate mood and affect HEENT: NC/AT CV: RRR Resp: Breath sounds clear bilaterally, no increased effort of breathing. Abdomen: . Soft, tender in epigastrium Extremities: No edema in lower extremities bilaterally. Results & Data Results & Data Vital Signs (Past 12 Hours) Vital Signs Temp Pulse Pulse Resp BP BP Pulse Ox 10/23/23 08:03 72 18 99 10/23/23 08:00 36.8 C 10/23/23 07:28 145/94 H 10/23/23 03:30 36.8 C 80 15 154/88 H 98 10/22/23 23:48 83 10/22/23 23:44 36.8 C 78 15 149/80 H 98 O2 Del Method 10/23/23 08:03 10/23/23 08:00 10/23/23 07:28 10/23/23 03:30 Room Air 10/22/23 23:48 10/22/23 23:44 Room Air
[2023-10-23 10:05] LABS: Base Excess VBG -0.7 mEq/L; HCO3 VBG 23 mmol/L; Oxygen Saturation VBG 97.1 %; PCO2 VBG 36 mmHg (38-50); PO2 VBG 77 mmHg; pH VBG 7.42 (7.36-7.41)
--- NOTE | 2023-10-23 10:09 | Pharmacy Report ---
Pharmacy Glycemic Short Note 2 - Date of Service October 23, 2023 - Glycemic Short BSG Results (Last 24 hours): 10/22/23 10/22/23 10/22/23 09:53 09:56 11:04 Glucose 168 H POC Glucose 167 H 171 H 10/22/23 10/22/23 10/22/23 13:07 13:57 16:04 Glucose POC Glucose 173 H 156 H 104 H 10/22/23 10/22/23 10/22/23 17:43 19:14 20:09 Glucose POC Glucose 169 H 183 H 174 H 10/22/23 10/22/23 10/22/23 21:06 22:01 23:05 Glucose POC Glucose 146 H 164 H 106 H 10/22/23 10/22/23 10/23/23 23:26 23:41 00:14 Glucose POC Glucose 85 98 139 H 10/23/23 10/23/23 10/23/23 00:25 01:24 02:27 Glucose POC Glucose 147 H 177 H 166 H 10/23/23 10/23/23 10/23/23 03:25 04:22 04:40 Glucose 160 H POC Glucose 160 H 154 H 10/23/23 10/23/23 10/23/23 05:25 06:29 07:29 Glucose POC Glucose 143 H 163 H 131 H 10/23/23 09:22 Glucose POC Glucose 193 H OUTPATIENT ANTIDIABETIC REGIMEN: * None * HbA1c 10.8% on 10/21/23 ASSESSMENT: 10/22 * Insulin drip still running this AM at 2.4 units/hr. Will increase Lantus * Plan to stop drip today no later than 6 hours after AM Lantus - may stop sooner if drip rate falls below 1 unit/hr * Novolog CF and CR to start at dinner today per below. Between weight-based moderate and severe stress estimates. 10/21 * 38 yo M with new-onset diabetes - type 1 vs type 2 not definitively determined at this time * Initiated on insulin drip * Anion gap now normalized although CO2 does remain a little low * D/w Dr. Eugene - plan to start diet, stop IVF containing D5W, and noted OK to start basal insulin in an attempt to transition off drip * Drip currently running at >14 units/hr - may be difficult to transition off today but will start the process by starting basal SC insulin * Fixed CHO ratio while transitioning off drip PLAN FOR INPATIENT GLYCEMIC CONTROL: * Insulin drip * Stop no later than 1330. OK to stop sooner if/when drip rate falls below 1 unit/hr * Basal insulin * Lantus 45 units SQ x1. * Bolus insulin - while transitioning off drip * NovoLog per scale ACHS * Nutritional / Prandial insulin per carb ratio of 1 unit per 7 grams CHO consumed * Bolus insulin - after drip transition * NovoLog per scale ACHS w two overnight checks tonight * Goal Range: Low 120 mg/dL - High 160 mg/dL * Correction Factor: 20 mg/dL/unit * Nutritional / Prandial insulin per carb ratio of 1 unit per 7 grams CHO consumed
[2023-10-23] MEDS ORDERED: Nursing to Pharmacy Communication SCH (10:30)
[2023-10-23] MEDS: LOSARTAN POTASSIUM 50 MG TAB PO SCH (16:25)
[2023-10-23] MEDS: INSULIN ASPART PER UNIT CHARGE SC SCH (17:41)
[2023-10-23] MEDS: PANTOprazole 40 MG TAB PO SCH (20:38)
[2023-10-23] MEDS ORDERED: PANTOprazole 40 MG TAB PO SCH (21:00)
[2023-10-23] MEDS ORDERED: PANTOprazole 40 MG in SYRINGE 0 ML IV SCH (21:00)
[2023-10-24] MEDS: INSULIN ASPART PER UNIT CHARGE SC SCH (00:02)
[2023-10-24 05:03] LABS: Basophils # (auto) 0.01 K/uL (0.00-0.20); Basophils % (auto) 0.4 %; Eosinophils # (auto) 0.02 K/uL (0.00-0.50); Eosinophils % (auto) 0.8 %; Hematocrit (blood only) 28.6 % (42.0-52.0); Hemoglobin 9.9 g/dl (14.0-18.0); Lymphocytes # (auto) 1.03 K/uL (1.20-3.40); Lymphocytes % (auto) 39.2 %; Mean Corpuscular Hemoglobin 29.3 pg (25.0-34.0); Mean Corpuscular Hgb Conc 34.6 g/dL (32.0-36.0); Mean Corpuscular Volume 84.6 fL (80.0-100.0); Mean Platelet Volume 10.4 fL (9.4-12.4); Monocytes # (auto) 0.25 K/uL (0.11-0.59); Monocytes % (auto) 9.5 %; Neutrophils # (auto) 1.32 K/uL (1.40-6.50); Neutrophils % (auto) 50.1 %; Platelet Count 147 K/uL (130-400); RDW Coefficient of Variation 12.6 % (11.5-14.5); RDW Standard Deviation 38.4 fL (36.4-46.3); Red Blood Count 3.38 M/uL (4.70-6.10); White Blood Count 2.63 K/ul (4.8-10.8)
[2023-10-24 05:17] LABS: Albumin Globulin Ratio 1.7 (0.9-2); Albumin Level 3.4 gm/dl (3.4-5.0); Bilirubin,Total 0.4 mg/dl (0.2-1.0); Calcium 8.1 mg/dl (8.6-10.3); Creatinine Clr Calc Pharmacy 192.5 ml/min; Est GFR (African American) 146.8 ml/min; Est GFR (Non-African American) 126.7 ml/min; Magnesium 1.9 mg/dl (1.7-2.4); Phosphorus 2.8 mg/dl (2.5-4.9); Potassium 2.8 mmol/L (3.5-5.1); Total Protein 5.4 gm/dl (6.0-8.3)
--- NOTE | 2023-10-24 07:22 | Hospitalist Progress Note ---
Date of Service October 24, 2023 Assessment & Plan (1) Hyperglycemic crisis in diabetes mellitus: (2) Diabetes mellitus, new onset: Plan Mr. Baker is a 38yoM with PMHx significant for hypertension, hyperlipidemia, prediabetes, GERD, past alcohol abuse admitted for DKA #New onset DM #Severe metabolic acidosis iso DKA*resolved Hemoglobin A1c of 10.8 Patient prediabetic as per outpatient records outpatient hemoglobin A1c of 5.8 from 2022 Admitted initially to the ICU given severe metabolic acidosis IV insulin initially, switched to SQ insulin IV fluids Pharmacy glycemic control consultation -s/p 30U glargine, plan for final dosing regimen in am -Will discharge with novolog with ?U/d and correction coverage Plan for possible d/c tomorrow once final insulin regimen confirmed with pharmacy #Acute normocytic anemia #UGIB Epigastric pain possibly from gastritis IV PPI for UGIB, switched to po ppi CT abd/pelvis noting markedly distended stomach, pt with persistent epigastric pain GI consulted, appreciate recs patient currently hemodynamically stable Transfuse PRBC if H&H less than 7 and or for symptomatic anemia B12 normal, folate normal, iron normal, ferritin at 130 Continue PPI BID #Hypokalemia #Hypophosphatemia Replete as needed #ARF secondary to illness Monitor creatinine response to IVF Home losartan restarted Improved #Mood Disorder Continue home med Diet: DM DVT prophylaxis. SCDs Re:possible GI bleed Dispo: home once medically stable Admission and Anticipated Discharge Date Admission Date: October 21, 2023 Subjective NAEO reports feeling much better Denies nausea, vomiting at this time Physical Exam Constitutional: WD/WN, vitals as above Respiratory: normal respiratory effort, lungs clear to auscultation Cardiovascular: RRR, no murmur, no edema Gastrointestinal (Abdomen): normal bowel sounds, soft, nontender, no hepatosplenomegaly Results & Data Results & Data Vital Signs (Past 12 Hours) Vital Signs Temp Pulse Pulse Resp BP Pulse Ox O2 Del Method 10/24/23 04:00 36.9 C 64 15 138/89 97 Room Air 10/24/23 00:00 36.8 C 65 15 124/86 98 Room Air 10/24/23 00:00 64 10/23/23 20:00 36.8 C 80 15 129/74 98 Room Air Laboratory Results Short CBC 10/24/23 Range/Units 04:23 WBC 2.63 L (4.8-10.8) K/ul Hgb 9.9 L (14.0-18.0) g/dl Hct 28.6 L (42.0-52.0) % Plt Count 147 (130-400) K/uL BMP 10/24/23 10/24/23 04:23 14:34 Sodium 139 138 Potassium 2.8 L 3.3 L Chloride 105 105 Carbon Dioxide 29 27 BUN 9 14 Creatinine 0.60 0.76 Glucose 149 H 152 H Calcium 8.1 L 8.6 Liver Function 10/24/23 Range/Units 04:23 Total Bilirubin 0.4 (0.2-1.0) mg/dl AST 26 (13-39) U/L ALT 30 (7-52) U/L Alkaline Phosphatase 77 (34-104) U/L Albumin 3.4 (3.4-5.0) gm/dl Medications Administered Home Medications Medication Instructions Recorded Confirmed Last Taken citalopram 20 mg tablet 20 mg PO ONCE PM 10/21/23 10/21/23 Unknown losartan 50 mg tablet 50 mg PO DIRECTED 10/21/23 10/21/23 Unknown omeprazole 20 mg capsule,delayed 20 mg PO DIRECTED 10/21/23 10/21/23 Unknown release blood sugar diagnostic (OneTouch #160 ea 10/24/23 Unknown Verio test strips) blood-glucose meter (OneTouch #1 ea 10/24/23 Unknown Verio Flex Meter) lancets 33 gauge (OneTouch Delica #200 ea 10/24/23 Unknown Plus Lancet) pen needle, diabetic 32 gauge x #150 ea 10/24/23 Unknown 5/32" (Pen Needle) Active Medications Generic Name Dose Route Start Last Admin Trade Name Freq PRN Reason Stop Dose Admin Acetaminophen 500 mg 10/22/23 00:27 10/24/23 02:20 Acetaminophen 500 Mg Tab PO 11/21/23 00:26 500 mg Q6H PRN Administration fever/pain Citalopram Hydrobromide 20 mg 10/22/23 21:00 10/23/23 20:37 Citalopram 20 Mg Tab PO 11/21/23 20:59 20 mg HS MOOSE Administration Insulin Aspart 0 units 10/23/23 16:30 10/24/23 12:57 Insulin Aspart Per Unit Charge SC 11/22/23 16:29 6 units ACHS MOOSE Administration Losartan Potassium 50 mg 10/23/23 16:00 10/24/23 08:15 Losartan Potassium 50 Mg Tab PO 11/22/23 15:59 50 mg DAILY MOOSE Administration Pantoprazole Sodium 40 mg 10/23/23 21:00 10/24/23 08:15 Pantoprazole 40 Mg Tab PO 11/22/23 20:59 40 mg BID MOOSE Administration
[2023-10-24 07:57] LABS: Immature Retic Fraction 2.3 % (2.3-15.9); Reticulated Hemoglobin 35.8 pg (28.2-36.6); Reticulocyte % 1.24 % (0.50-2.00); Reticulocytes # 0.04 10^6/uL (0.020-0.100)
[2023-10-24] MEDS: LANTUS PER UNIT CHARGE SC ONE (08:06)
[2023-10-24] MEDS: POTASSIUM CHLORIDE CRTAB 20 MEQ TABCR PO STA ×2 (08:06→17:08)
[2023-10-24] MEDS: POTASSIUM CHLORIDE / WTR 10 MEQ/100 ML PLCT IV SCH (08:06)
[2023-10-24 08:49] LABS: Ferritin 130.1 ng/ml (8-388)
[2023-10-24 08:50] LABS: Folate (Folic Acid),Ser orPlas 9.08 ng/ml (>5.38)
--- NOTE | 2023-10-24 13:24 | Gastrointestinal Consultation ---
<Statement entered by Gisele Goldberg MD - 10/24/23 17:25> I have examined the patient, reviewed the History & Physical and in the interval since the performance of the History & Physical I have noted the following changes of clinical significance: no changes noted. I agree with the documentation provided by FELECIA Reilly with no additional comments. Plan for EGD tomorrow if otherwise medically stable. Date of Consultation October 24, 2023 Assessment & Plan (1) Abdominal pain: (2) Abnormal CT scan, stomach: Plan -Continue Protonix 40 mg BID -Continue to monitor H/H -Patient has eaten a regular diet today and K is 2.8 preventing any GI proce dures today; Will discuss further with Dr. Goldberg about possible endoscopic evaluation to occur moving forward. History of Present Illness Reason for Consultation: distended stomach on CT, epigastric pain, anemia Attending Physician: Valerie Wang MD History of Present Illness Patient is a 38 yo male admitted for DKA. GI has been consulted due to epigastric pain, anemia, & CT abnormalities. CT from 10/21/23 indicated fluid distention of the stomach. The patient notes that he had epigastric pain without radiation on 10/23/23, but this has resolved entirely. No nausea or vomiting. No melena, hematochezia, hematemesis. He denies a history of GI issues in the past. He is currently on Protonix 40 mg BID. H/H is currently 9.9/28.6. Patient's K is 2.8 today. Anion gap is closed. No pertinent family history. No NSAID use. He does take Omeprazole 20 mg daily at home. Patient is on a regular diet. He has eaten just prior to my arrival. Allergies Allergy/AdvReac Type Severity Reaction Status Date / Time No Known Allergies Allergy Unverified 06/18/17 08:38 Home Medications Medication Instructions Recorded Confirmed Type citalopram 20 mg tablet 20 mg PO ONCE PM 10/21/23 10/21/23 History losartan 50 mg tablet 50 mg PO DIRECTED 10/21/23 10/21/23 History omeprazole 20 mg capsule,delayed 20 mg PO DIRECTED 10/21/23 10/21/23 History release Patient History Surgical History (Updated 10/21/23 @ 22:50 by Louie Fletcher PA-C) No significant past surgical history Social History Smoking Status: Former smoker Do You Dip or Chew Tobacco: Yes (zyn pouches); Hx Alcohol Use: No Hx Substance Use: No Preferred Language: Russian Communication Ability: Effective Nurse Consultant Required: No Beliefs That Will Affect Care: None Current Living Situation: Alone Other Information That Helps Us Care for You: No Feels Safe at Home: Yes Safety Concerns: Feels Safe At This Time Assistive Devices: Glasses Review of Systems Constitutional: no fever and no chills Respiratory: no cough and no dyspnea Cardiovascular: no chest pain Gastrointestinal: no abdominal pain Physical Exam Constitutional: well developed Respiratory: normal respiratory effort Gastrointestinal (Abdomen): normal bowel sounds, soft, nontender, no hepatosp lenomegaly Results & Data Vital Signs (Past 12 Hours) Vital Signs Temp Pulse Pulse Resp BP BP Pulse Ox 10/24/23 08:09 83 17 10/24/23 08:00 36.5 C 10/24/23 07:27 142/95 H 95 10/24/23 07:21 64 13 10/24/23 07:03 64 21 10/24/23 04:00 36.9 C 64 15 138/89 97 O2 Del Method 10/24/23 08:09 10/24/23 08:00 10/24/23 07:27 Room Air 10/24/23 07:21 10/24/23 07:03 10/24/23 04:00 Room Air PG Care Time/CCT Total # of Minutes Spent Total Time Spent with Patient: Total time spent is greater than 50% in coordination of care (as documented) at patient's floor/unit and/or counseling patient: Coding Level of Care Code 23978 IN/OBS CONSULT LVL 4,60M Diagnoses Abdominal pain R10.[address] scan, stomach R93.3
[2023-10-24 15:07] LABS: BUN Creatinine Ratio 18.4 (10-20); Calcium 8.6 mg/dl (8.6-10.3); Est GFR (African American) 133.2 ml/min; Est GFR (Non-African American) 114.9 ml/min; Potassium 3.3 mmol/L (3.5-5.1)
[2023-10-25 06:05] LABS: Albumin Globulin Ratio 1.7 (0.9-2); Albumin Level 3.6 gm/dl (3.4-5.0); BUN Creatinine Ratio 17.2 (10-20); Bilirubin,Total 0.5 mg/dl (0.2-1.0); Calcium 8.9 mg/dl (8.6-10.3); Creatinine Clr Calc Pharmacy 180.5 ml/min; Est GFR (African American) 142.9 ml/min; Est GFR (Non-African American) 123.3 ml/min; Globulin 2.1 gm/dl (2.5-4.0); Magnesium 2.1 mg/dl (1.7-2.4); Phosphorus 3.2 mg/dl (2.5-4.9); Potassium 3.5 mmol/L (3.5-5.1); Total Protein 5.7 gm/dl (6.0-8.3)
[2023-10-25 06:10] LABS: Basophils # (auto) 0.01 K/uL (0.00-0.20); Basophils % (auto) 0.4 %; Eosinophils # (auto) 0.05 K/uL (0.00-0.50); Eosinophils % (auto) 1.9 %; Hematocrit (blood only) 30.6 % (42.0-52.0); Hemoglobin 10.4 g/dl (14.0-18.0); Immature Granulocytes # (auto) 0.01 K/uL (0.01-0.20); Immature Granulocytes % (auto) 0.4 %; Lymphocytes # (auto) 1.06 K/uL (1.20-3.40); Lymphocytes % (auto) 41.2 %; Mean Corpuscular Hemoglobin 29.2 pg (25.0-34.0); Mean Platelet Volume 10.7 fL (9.4-12.4); Monocytes # (auto) 0.21 K/uL (0.11-0.59); Monocytes % (auto) 8.2 %; Neutrophils # (auto) 1.23 K/uL (1.40-6.50); Neutrophils % (auto) 47.9 %; Platelet Count 165 K/uL (130-400); RDW Coefficient of Variation 12.4 % (11.5-14.5); RDW Standard Deviation 39.2 fL (36.4-46.3); Red Blood Count 3.56 M/uL (4.70-6.10); White Blood Count 2.57 K/ul (4.8-10.8)
[2023-10-25] MEDS: INSULIN ASPART PER UNIT CHARGE SC SCH (07:48)
[2023-10-25] MEDS: LANTUS PER UNIT CHARGE SC ONE (07:56)
--- NOTE | 2023-10-25 08:16 | Hospitalist Progress Note ---
Date of Service October 25, 2023 Assessment & Plan (1) Hyperglycemic crisis in diabetes mellitus: (2) Diabetes mellitus, new onset: Plan Mr. Baker is a 38yoM with PMHx significant for hypertension, hyperlipidemia, prediabetes, GERD, past alcohol abuse admitted for DKA #New onset DM #Severe metabolic acidosis iso DKA*resolved Hemoglobin A1c of 10.8 Patient prediabetic as per outpatient records outpatient hemoglobin A1c of 5.8 from 2022 Admitted initially to the ICU given severe metabolic acidosis IV insulin initially, switched to SQ insulin IV fluids Pharmacy glycemic control consultation -s/p 30U glargine, plan for final dosing regimen in am -Will discharge with novolog with ?U/d and correction coverage s/p 15 U, will follow up with pharmacy to discuss d/c recommendations (today v tomorrow given EGD this morning) #Acute normocytic anemia #UGIB Epigastric pain possibly from gastritis IV PPI for UGIB, switched to po ppi CT abd/pelvis noting markedly distended stomach, pt with persistent epigastric pain GI consulted, appreciate recs patient currently hemodynamically stable Transfuse PRBC if H&H less than 7 and or for symptomatic anemia B12 normal, folate normal, iron normal, ferritin at 130 Continue PPI BID GI agreeable to scope this morning given persistent anemia without clear eitology EGD today, follow up further recommendations #Hypokalemia #Hypophosphatemia Replete as needed #ARF secondary to illness Monitor creatinine response to IVF Home losartan restarted Improved #Mood Disorder Continue home med Diet: DM DVT prophylaxis. SCDs Re:possible GI bleed, encourage ambulation Dispo: home once medically stable Admission and Anticipated Discharge Date Admission Date: October 21, 2023 Subjective Evaluated prior to EGD Denies any pain or new concerns requests letter for return to work when able ' No nausea or vomiting Physical Exam Constitutional: WD/WN, vitals as above Respiratory: normal respiratory effort, lungs clear to auscultation Cardiovascular: RRR, no murmur, no edema Gastrointestinal (Abdomen): normal bowel sounds, soft, nontender, no hepatosplenomegaly Results & Data Results & Data Vital Signs (Past 12 Hours) Vital Signs Temp Pulse Pulse Resp BP Pulse Ox O2 Del Method 10/25/23 07:00 37.1 C 74 16 147/91 H 96 Room Air 10/25/23 02:51 36.8 C 65 18 139/81 97 Room Air 10/24/23 22:04 68 10/24/23 22:00 73 10/24/23 21:35 36.5 C 67 18 144/87 H 95 Room Air Laboratory Results Short CBC 10/25/23 Range/Units 05:23 WBC 2.57 L (4.8-10.8) K/ul Hgb 10.4 L (14.0-18.0) g/dl Hct 30.6 L (42.0-52.0) % Plt Count 165 (130-400) K/uL BMP 10/24/23 10/25/23 14:34 05:23 Sodium 138 137 Potassium 3.3 L 3.5 Chloride 105 105 Carbon Dioxide 27 27 BUN 14 11 Creatinine 0.76 0.64 Glucose 152 H 222 H Calcium 8.6 8.9 Liver Function 10/25/23 Range/Units 05:23 Total Bilirubin 0.5 (0.2-1.0) mg/dl AST 25 (13-39) U/L ALT 40 (7-52) U/L Alkaline Phosphatase 77 (34-104) U/L Albumin 3.6 (3.4-5.0) gm/dl Medications Administered Home Medications Medication Instructions Recorded Confirmed Last Taken citalopram 20 mg tablet 20 mg PO ONCE PM 10/21/23 10/21/23 Unknown losartan 50 mg tablet 50 mg PO DIRECTED 10/21/23 10/21/23 Unknown omeprazole 20 mg capsule,delayed 20 mg PO DIRECTED 10/21/23 10/21/23 Unknown release blood sugar diagnostic (OneTouch #160 ea 10/24/23 Unknown Verio test strips) blood-glucose meter (OneTouch #1 ea 10/24/23 Unknown Verio Flex Meter) lancets 33 gauge (OneTouch Delica #200 ea 10/24/23 Unknown Plus Lancet) pen needle, diabetic 32 gauge x #150 ea 10/24/23 Unknown 32" (Pen Needle) Active Medications Generic Name Dose Route Start Last Admin Trade Name Freq PRN Reason Stop Dose Admin Acetaminophen 500 mg 10/22/23 00:27 10/24/23 02:20 Acetaminophen 500 Mg Tab PO 11/21/23 00:26 500 mg Q6H PRN Administration fever/pain Citalopram Hydrobromide 20 mg 10/22/23 21:00 10/24/23 21:15 Citalopram 20 Mg Tab PO 11/21/23 20:59 20 mg HS MOOSE Administration Insulin Aspart 0 units 10/25/23 07:15 10/25/23 07:48 Insulin Aspart Per Unit Charge SC 11/24/23 07:14 3 units Q6 MOOSE Administration Losartan Potassium 50 mg 10/23/23 16:00 10/24/23 08:15 Losartan Potassium 50 Mg Tab PO 11/22/23 15:59 50 mg DAILY MOOSE Administration Pantoprazole Sodium 40 mg 10/23/23 21:00 10/24/23 21:14 Pantoprazole 40 Mg Tab PO 11/22/23 20:59 40 mg BID MOOSE Administration
--- NOTE | 2023-10-25 08:35 | History & Physical Bridge Note ---
<Statement entered by Gisele Goldberg MD - 10/25/23 08:38> I agree with the documentation provided by FELECIA Reilly with no additional comments. Date of Service October 25, 2023 History & Physical Bridge Note I have reviewed the History & Physical and in the interval since the performance of the History & Physical I have noted the following changes of clinical significance: no changes noted. H/H is 10.4/30.6. He continues on IV Protonix. Keep NPO & proceed with EGD this AM.
--- NOTE | 2023-10-25 09:09 | Anesthesiology Consultation ---
Date of Service October 25, 2023 Assessment & Plan Chart Review Chart Review: Acceptable Risk for Surgery and Patient NOT seen in Pre Admission Testing Consults Requested none History Surgery Operation Date: 10/25/23 17:10 Proposed Procedures p Esophagogastroduodenoscopy [place] - Gisele Goldberg MD Height/Weight Height: 5 ft 11 in Weight: 92.9 kg Allergies Allergy/AdvReac Type Severity Reaction Status Date / Time No Known Allergies Allergy Unverified 06/18/17 08:38 Medications Home Medications Medication Instructions Recorded Confirmed Last Taken citalopram 20 mg tablet 20 mg PO ONCE PM 10/21/23 10/21/23 Unknown losartan 50 mg tablet 50 mg PO DIRECTED 10/21/23 10/21/23 Unknown omeprazole 20 mg capsule,delayed 20 mg PO DIRECTED 10/21/23 10/21/23 Unknown release blood sugar diagnostic (OneTouch #160 ea 10/24/23 Unknown Verio test strips) blood-glucose meter (OneTouch #1 ea 10/24/23 Unknown Verio Flex Meter) lancets 33 gauge (OneTouch Delica #200 ea 10/24/23 Unknown Plus Lancet) pen needle, diabetic 32 gauge x #150 ea 10/24/23 Unknown 5/32" (Pen Needle) Active Medications Generic Name Dose Route Start Last Admin Trade Name Boris PRN Reason Stop Dose Admin Acetaminophen 500 mg 10/22/23 00:27 10/24/23 02:20 Acetaminophen 500 Mg Tab PO 11/21/23 00:26 500 mg Q6H PRN Administration fever/pain Citalopram Hydrobromide 20 mg 10/22/23 21:00 10/24/23 21:15 Citalopram 20 Mg Tab PO 11/21/23 20:59 20 mg HS MOOSE Administration Insulin Aspart 0 units 10/25/23 07:15 10/25/23 07:48 Insulin Aspart Per Unit Charge SC 11/24/23 07:14 3 units Q6 MOOSE Administration Losartan Potassium 50 mg 10/23/23 16:00 10/24/23 08:15 Losartan Potassium 50 Mg Tab PO 11/22/23 15:59 50 mg DAILY MOOSE Administration Pantoprazole Sodium 40 mg 10/23/23 21:00 10/24/23 21:14 Pantoprazole 40 Mg Tab PO 11/22/23 20:59 40 mg BID MOOSE Administration Past Medical History Medical History (Updated 10/25/23 @ 09:05 by George Gupta MD) Hyperglycemic crisis in diabetes mellitus GERD (gastroesophageal reflux disease) Acidosis due to secondary diabetes Diabetes mellitus, new onset Past Surgical History Surgical History (Updated 10/21/23 @ 22:50 by Louie Fletcher PA-C) No significant past surgical history Social History Smoking Status: Former smoker Do You Dip or Chew Tobacco: Yes (zyn pouches) Hx Alcohol Use: No Hx Substance Use: No Review of Systems Constitutional: no fever and no chills Respiratory: no cough and no dyspnea Cardiovascular: no chest pain Gastrointestinal: no abdominal pain Physical Exam Vital Signs Last Vital Signs Temp 37.1 C 10/25/23 07:00 Pulse 74 10/25/23 07:00 Resp 16 10/25/23 07:00 BP 147/91 H 10/25/23 07:00 Pulse Ox 96 10/25/23 07:00 O2 Del Method Room Air 10/25/23 07:00 Constitutional WD/WN, vitals as above well developed, cooperative and comfortable Eyes PERRL, conjunctivae normal, anicteric sclerae ENMT external ear and nose normal, oropharynx normal Neck trachea midline, no thyromegaly Respiratory normal respiratory effort, lungs clear to auscultation normal respiratory effort Cardiovascular RRR, no murmur, no edema Rate/Rhythm: regular rate and + tachycardic Heart Sounds: normal S1 and normal S2; no murmur Extremities: no edema Gastrointestinal (Abdomen) normal bowel sounds, soft, nontender, no hepatosplenomegaly Musculoskeletal no cyanosis or clubbing, extremities motor strength 5/5 Skin no rashes, warm and dry Neurologic PERRL, EOMI, accommodation nl, no face palsy, no dysarthria Psychiatric A+Ox3, euthymic affect Testing Laboratory Results 10/25/23 05:23 10/25/23 05:23 PT 10.2 Seconds (9.0-12.0) 10/21/23 22:10 INR 0.9 (0.9-1.1) 10/21/23 22:10 APTT 30 Seconds (21-31) 10/21/23 22:10 Hemoglobin A1c 10.8 % (4.5-5.6) H 10/21/23 22:10 Urine Color Yellow 10/21/23 22:44 Urine Appearance Clear (Clear) 10/21/23 22:44 Urine pH 5.0 (4.5-7.5) 10/21/23 22:44 Ur Specific [place] 1.025 (1.000-1.030) 10/21/23 22:44 Urine Protein Trace (Negative) H 10/21/23 22:44 Urine Glucose (UA) 2+ (Negative) H 10/21/23 22:44 Urine Ketones 4+ (Negative) H 10/21/23 22:44 Urine Nitrite Negative (Negative) 10/21/23 22:44 Ur Leukocyte Esterase Negative (Negative) 10/21/23 22:44 Urine WBC (Auto) 0-5 /hpf (0-5) 10/21/23 22:44 Urine RBC (Auto) 0-2 /hpf (0-2) 10/21/23 22:44 U Hyaline Cast (Auto) 0-2 /lpf (0-2) 10/21/23 22:44 U Epithel Cells (Auto) 0-2 /hpf (0-2) 10/21/23 22:44 Urine Bacteria (Auto) None Seen (None Seen) 10/21/23 22:44 Blood Type O Positive 10/22/23 05:40 Antibody Screen NEGATIVE 10/22/23 05:40 10/25/23 07:55 POC Glucose 221 H
--- NOTE | 2023-10-25 10:17 | GI REPORT ---
[facility] Patient: JUSTIN PANCHAL : 1985 Sex at : Male Age: 38 Years Procedure: Upper GI endoscopy Date: 10/25/2023 Attending Physician: Gisele Goldberg MD Referring MD: Valerie Wang Md Indications: - Abnormal CT of the GI tract Medications: - Monitored Anesthesia Care Complications: - No immediate complications. Estimated Blood Loss: - Estimated blood loss was minimal. Procedure: - Prior to the procedure, a History and Physical was performed, and patient medications and allergies were reviewed. The patient's tolerance of previous anesthesia was also reviewed. The risks and benefits of the procedure and the sedation options and risks were discussed with the patient. All questions were answered, and informed consent was obtained. Prior Anticoagulants: The patient has taken no anticoagulant or antiplatelet agents. ASA Grade Assessment: III - A patient with severe systemic disease. After reviewing the risks and benefits, the patient was deemed in satisfactory condition to undergo the procedure. - The egd scope was introduced through the mouth and advanced to the third part of the duodenum. - The upper GI endoscopy was accomplished without difficulty. - The patient tolerated the procedure well. Findings: - The Z-line was irregular and was found at the gastroesophageal junction. Biopsies were taken with a cold forceps for histology. - The entire examined stomach was normal. Biopsies were taken with a cold forceps for Helicobacter pylori testing from the gastric body and gastric antrum. - The examined duodenum was normal. Biopsies for histology were taken with a cold forceps for evaluation of celiac disease. Impression: - Z-line irregular, at the gastroesophageal junction. Biopsied. - Normal stomach. Biopsied. - Normal examined duodenum. Biopsied. Recommendation: - Resume previous diet. - Continue present medications. - Await pathology results. If anemia persists after discharge, a colonoscopy should be performed. Procedure Code(s): - 87045, Esophagogastroduodenoscopy, flexible, transoral; with biopsy, single or multiple Diagnosis Code(s): - R93.3, Abnormal findings on diagnostic imaging of other parts of digestive tract - K22.89, Other specified disease of esophagus CPT(R) - 2023 copyright [employer]. All Rights Reserved. The CPT codes, CCI edits and ICD codes generated are intended as suggestions and were generated based on input data. These codes are preliminary and upon banjo repair person review may be revised to meet current compliance and payer requirements. The provider is responsible for the final determination of appropriate codes, and modifiers. Gisele Goldberg MD This document has been electronically signed. Note Initiated:10/25/2023 Note Completed:10/25/2023 10:16 AM [id number]
[2023-10-25] MEDS: POTASSIUM CHLORIDE CRTAB 20 MEQ TABCR PO SCH (11:06)
[2023-10-25] MEDS: LIDOCAINE 2% 2 ML VIAL/AMP(20MG/ML) INFIL ONE (11:09)
[2023-10-25] MEDS: PROPOFOL IV EMULSION 10 MG/ML 20 ML VIAL IV ONE ×2 (11:09)
--- NOTE | 2023-10-25 11:20 | Anesthesiology Progress Note ---
Date of Service October 25, 2023 Anesthesia Post Procedure Vital Signs Vital Signs: Temp Pulse Pulse Pulse Resp BP BP 10/25/23 11:03 67 18 10/25/23 10:44 75 16 143/94 H 10/25/23 10:30 79 16 135/87 10/25/23 10:19 93 H 16 120/87 10/25/23 09:08 36.8 C 76 16 141/98 H 10/25/23 07:31 71 10/25/23 07:00 37.1 C 74 16 10/25/23 02:51 36.8 C 65 18 10/24/23 22:04 68 10/24/23 22:00 73 10/24/23 21:35 36.5 C 67 18 10/24/23 20:00 36.9 C 67 15 10/24/23 18:06 76 17 10/24/23 17:28 137/81 10/24/23 17:06 89 13 10/24/23 16:06 73 19 10/24/23 14:15 89 17 10/24/23 12:00 88 24 BP Pulse Ox O2 Del Method 10/25/23 11:03 139/86 98 Room Air 10/25/23 10:44 100 Room Air 10/25/23 10:30 98 Room Air 10/25/23 10:19 97 Room Air 10/25/23 09:08 97 Room Air 10/25/23 07:31 10/25/23 07:00 147/91 H 96 Room Air 10/25/23 02:51 139/81 97 Room Air 10/24/23 22:04 10/24/23 22:00 10/24/23 21:35 144/87 H 95 Room Air 10/24/23 20:00 129/78 98 Room Air 10/24/23 18:06 10/24/23 17:28 10/24/23 17:06 10/24/23 16:06 95 Room Air 10/24/23 14:15 10/24/23 12:00 Pain Intensity Abdomen: Pain Intensity: 6 Transfer of Care Handoff Completed per policy Notes Mental Status: alert / awake / arousable Patient Amnestic to Procedure: Yes Nausea / Vomiting: adequately controlled Pain: adequately controlled Airway Patency, RR, SpO2: stable & adequate BP & HR: stable & adequate Hydration State: stable & adequate Anesthetic Complications: no major complications apparent and Pt Satisfied with anesthetic care
--- NOTE | 2023-10-25 12:19 | Pharmacy Report ---
Pharmacy Glycemic Short Note 2 - Date of Service October 25, 2023 - Glycemic Short BSG Results (Last 24 hours): 10/24/23 10/24/23 10/24/23 14:34 16:21 20:49 Glucose 152 H POC Glucose 104 H 219 H 10/25/23 10/25/23 10/25/23 05:23 07:55 11:07 Glucose 222 H POC Glucose 221 H 157 H OUTPATIENT ANTIDIABETIC REGIMEN: * None * HbA1c 10.8% on 10/21/23 ASSESSMENT: 10/24 * 55 units SQ insulin given over last 24 hrs while tolerating a diet * Fasting BSG elevated this AM with 30 units basal on board. Would have opted to increase dose today however pt was NPO for procedure. Will give reduced dose today as a result. Will reeval basal needs tomorrow AM * Post-prandial BSG pattern suggest insulin stacking may be occurring leading to drop in BSG prior to dinner. Will continue to monitor for now. Lessened correctional insulin dose slightly and maintained higher goal range to prevent low from stacking. 10/22 * Insulin drip still running this AM at 2.4 units/hr. Will increase Lantus * Plan to stop drip today no later than 6 hours after AM Lantus - may stop sooner if drip rate falls below 1 unit/hr * Novolog CF and CR to start at dinner today per below. Between weight-based moderate and severe stress estimates. 10/21 * 38 yo M with new-onset diabetes - type 1 vs type 2 not definitively determined at this time * Initiated on insulin drip * Anion gap now normalized although CO2 does remain a little low * D/w Dr. Eugene - plan to start diet, stop IVF containing D5W, and noted OK to start basal insulin in an attempt to transition off drip * Drip currently running at >14 units/hr - may be difficult to transition off today but will start the process by starting basal SC insulin * Fixed CHO ratio while transitioning off drip PLAN FOR INPATIENT GLYCEMIC CONTROL: * Basal insulin * Lantus 15 units SQ x1 this AM and 15units x 1 with dinner if diet resumed. Will likely resume 30units Lantus daily in AM tomorrow pending eval of fasting BSG. * Bolus insulin - after drip transition * NovoLog per scale ACHS w two overnight checks tonight * Goal Range: Low 120 mg/dL - High 160 mg/dL * Correction Factor: 25 mg/dL/unit * Nutritional / Prandial insulin per carb ratio of 1 unit per 8 grams CHO consumed. May need to use different CRs with breakfast and lunch.
[2023-10-25] MEDS: LANTUS PER UNIT CHARGE SC STA (14:20)
--- NOTE | 2023-10-25 15:50 | Discharge Summary ---
Discharge Summary Date of Service October 25, 2023 Principal Dx & Hospital Course #1 = Principal Diagnosis (1) Hyperglycemic crisis in diabetes mellitus: (2) Diabetes mellitus, new onset: Plan Mr. Baker is a 38yoM with PMHx significant for hypertension, hyperlipidemia, prediabetes, GERD, past alcohol abuse admitted for DKA #New onset DM #Severe metabolic acidosis iso DKA*resolved Hemoglobin A1c of 10.8 Patient prediabetic as per outpatient records outpatient hemoglobin A1c of 5.8 from 2022 Admitted initially to the ICU given severe metabolic acidosis IV insulin initially, switched to SQ insulin IV fluids Pharmacy glycemic control consultation Discharged with all supplies confirmed at pharmacy -Lantus 30U qam Novolog 6 U with meals and 25CF #Acute normocytic anemia *stable #UGIB Epigastric pain possibly from gastritis IV PPI for UGIB, switched to po ppi CT abd/pelvis noting markedly distended stomach, pt with persistent epigastric pain GI consulted, appreciate recs patient currently hemodynamically stable Transfuse PRBC if H&H less than 7 and or for symptomatic anemia B12 normal, folate normal, iron normal, ferritin at 130 Continue PPI BID GI agreeable to scope this morning given persistent anemia without clear eitology EGD today without clear source of bleed, overall normal Consider OP follow up for Colonoscopy #Hypokalemia #Hypophosphatemia Replete as needed, resolved #ARF secondary to illness *resolved on RA #Hypertension continue home losaratn #Mood Disorder Continue home med Notes For Next Care Provider Need Endocrine follow up v antibody testing for etiology of DM Need GI follow up for consideration of colonoscopy for anemia Medication Changes From Visit Lantus 30 U qam Novolog 6 u with meals plus correction factor Glucometer and supplies Admission HPI Per Admitting Provider History obtained from patient, family, and records. Medical history significant for hypertension, hyperlipidemia, prediabetes, GERD, past alcohol abuse. Patient has not been well for about a week. Frequent urination and increased thirst. Achy epigastric discomfort associated with nausea and dry heaving symptoms. No chest pain, a little short of breath. Coffee-ground emesis before leaving work last night. Patient partner suspicious of possible diabetes symptoms. Patient brought to ER for evaluation. BSG 800s. IV insulin initiated at the ER. 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 Exam Per Admitting Provider GENERAL: Comfortable, pleasant, no respiratory distress SKIN: Normal color, warm HEENT: [place] palpebral conjunctivae, no ptosis, dry buccal mucosa NECK : Supple, no tenderness CHEST : CTA, no tenderness HEART : Tachycardic, no obvious murmurs ABDOMEN: Some distention, epigastric tenderness EXTREMITIES : No LE swelling/tenderness, no other conspicuous deformities noted NEUROLOGIC : Coherent, no facial asymmetry, no other gross focality Discharge Exam Constitutional WD/WN, vitals as above Respiratory normal respiratory effort, lungs clear to auscultation Cardiovascular RRR, no murmur, no edema Gastrointestinal (Abdomen) normal bowel sounds, soft, nontender, no hepatosplenomegaly Updated Medication List Medication Instructions Recorded Confirmed Type citalopram 20 mg tablet 20 mg PO ONCE PM 10/21/23 10/21/23 History losartan 50 mg tablet 50 mg PO DIRECTED 10/21/23 10/21/23 History blood sugar diagnostic (OneTouch #160 ea 10/24/23 Rx Verio test strips) blood-glucose meter (OneTouch #1 ea 10/24/23 Rx Verio Flex Meter) lancets 33 gauge (OneTouch Delica #200 ea 10/24/23 Rx Plus Lancet) pen needle, diabetic 32 gauge x #150 ea 10/24/23 Rx 5/32" (Pen Needle) insulin aspart U-100 100 unit/mL 6 unit (0.06 mL) subcut TID #15 mL 10/25/23 Rx (3 mL) subcutaneous pen (Novolog FlexPen U-100 Insulin aspart) insulin glargine 100 unit/mL (3 30 unit (0.3 mL) subcut QAM #15 mL 10/25/23 Rx mL) subcutaneous pen (Lantus Solostar U-100 Insulin) Hospital Stay Data Consultations 10/21/23 23:02 ED Decision to Admit Stat 10/22/23 01:43 Consult Sewage Reticulation Drafting Officer Routine 10/23/23 15:40 Consult Gastroenterology Routine Procedures Performed Operation Date: 10/25/23 17:10 Actual Procedures p EGD Biopsy Cytology - Gisele Goldberg MD Diagnostic Imagining Performed 10/21/23 22:06 CT abd pelvis wo con Stat Pending Results Patient Have Any Pending Studies at Discharge: No Discharge Instructions Given to Patient (Per Discharging Provider) You were noted to have new onset diabetes and presented with Diabetic Ketoacidosis. You were treated with insulin and improved. You were also noted to have anemia, or low blood count. Scope of your stomach and esophagus did not reveal any signs of bleed. However, you should follow up with the Medical Staff Physician as an outpatient and discuss possible colonoscopy to understand the source of your low blood count. You will be discharged on insulin, fast (Novolog) and slow (lantus) Please take Novolog 6 U with each meal and correctional coverage as discussed by the Bridge Rigger Please take Lantus 30 U in am for long acting coverage Please pursue lifestyle changes- eliminate sugar-sweetened drinks, balanced meals, mindful of portion sizes of starchy carbs. Total Time Total Time Spent Total Time Spent (In Minutes): 60
[2023-10-25] MEDS ORDERED: LANTUS PER UNIT CHARGE SC ONE (16:30)
[2023-10-25] MEDS ORDERED: INSULIN ASPART PER UNIT CHARGE SC SCH ×2 (16:30→18:00)
[2023-10-26] MEDS ORDERED: LANTUS PER UNIT CHARGE SC SCH ×2 (09:00→11:30)
== END 2023-10-25 15:42 | disposition home or self-care (01) | DRG 637 ==
LOC: ED 21:45 → 1E 23:56 → SUATTDRO 23:56 → 1E 10-22 01:38 → 2E 10-24 21:30